=== PATIENT | female | born 1940 | race Hispanic/Latino ===

== ENCOUNTER 2016-09-01 15:34 | Inpatient (IN) | payer MEDICAID ==
[~2016-09-01] VITALS: Ht 152.4 cm; Wt 69.8 kg
[~2016-09-01 15:34] MED LIST: ASPI-973 PO; HYDR-3825 PO; INSU100V4 SUBQ; LISI-571 PO; METF-496 PO; POLY17PO6 PO; SENN-133 PO
[2016-09-01 15:37] VITALS: BP 160/67; RESP 22; O2SAT 91
--- NOTE | 2016-09-01 16:09 | ED.REPORT ---
HPI-General Illness Date of Service Sep 01, 2016 ED Provider: Khris Ardon MD History of Present Illness: OCC This is a 75 year old female with a history of DM, hyperlipidemia, HTN presenting to the emergency department accompanied by family members complaining of headache that began yesterday. Pt reports diffuse headache and generalized myalgias, associated with neck pain. Son reports confusion, weakness (pt unable to walk today), shaking chills, and cough that all began yesterday evening. Reports decreased PO intake today. [facility] [place] [facility] ago. Nursing Notes Stated Complaint: HIGH BP Chief Complaint: General Complaint Nursing Notes Reviewed: Yes (HeyStaks not reconciled) Allergies: Coded Allergies: lisinopril (Verified Adverse Reaction, Intermediate, COUGH, 09/01/16) Scheduled Aspirin (Aspirin) 81 Mg Tablet 81 MG PO DAILY Insulin Detemir (Levemir U100 Insulin Vial) 100 Unit/1 Ml Vial 11 UNIT SUBQ HS Lisinopril (Lisinopril) 5 Mg Tablet 5 MG PO DAILY Metformin ER (Metformin ER) 1,000 Mg Tablet 1,000 MG PO BID Scheduled PRN Hydrocodone-Acetaminophen 7.5-325 mg (Hydrocodone-Acetaminophen 7.5-325 mg) 1 Each Tablet 1 TABLET PO HS PRN PRN For Pain Polyethylene Glycol 3350 (Miralax) 17 Gm Powd.pack 17 GM PO DAILY PRN PRN For Constipation Sennosides (Senna) 8.6 Mg Tablet 8.6 MG PO BID PRN PRN For Constipation General Time Seen by MD: 15:45 Chief Complaint Other Hx Obtained From: Patient Arrived By: Walk-in Sudden in Onset?: Yes Onset Occurred: Just prior to arrival Symptom Duration: Since onset Severity: Current: Mild Pertinent Negative: Pt denies other symptoms Recent Healthcare: No recent doctor visit, No recent hospitalization Similar Sx Previous: No Past Medical History Past Medical History Notes: Admitted 08/2015 for r/o sepsis, discharge dx gastroenteritis Past Medical History 1. Significant for type 2 diabetes mellitus, poorly controlled, positive history of diabetic gastroparesis, neuropathy 2. Depression and anxiety. 3. History of atypical chest pain with a negative stress echo in 2002. 4. Chronic sciatica (history of receiving 60 Vicodin a month) 5. 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 Reports: Diabetes mellitus, Hyperlipidemia, Hypertension Past Surgical History Reports: Tubal ligation Smoking History Never Smoker Social History Pt is Kittitian-speaking Drug Use: Denies drug use Ambulatory Status Independent Review of Systems Unable to Obtain ROS Patient condition Full Review of Systems Constitutional: Reports: Chills Musculoskeletal: Reports: Neck pain Neurologic: Reports: Headache Physical Exam Vital Signs Vital Signs Date Time Temp Pulse Resp B/P Pulse Ox O2 Delivery O2 Flow Rate FiO2 09/01/16 18:00 37.2 86 25 128/48 98 Nasal Cannula 2 09/01/16 15:37 39.9 22 160/67 91 Room Air Initial VS: Reviewed Head / Eyes: Atraumatic, Normocephalic, PERRL ENT: Mucous membranes moist, Conjunctiva normal, No scleral icterus Neck: Supple, Non-tender, Full range of motion Cardiovascular: Regular rate & rhythm, Heart sounds normal, Intact distal pulses Extremities: Vascular intact, Neuro intact, No swelling, No tenderness Skin: Warm, Dry, No cyanosis Alertness: Positive: Responds to verb stimuli Appears ill and very fatigued. Respiratory / Chest: No wheezing Tachypneic, lung sounds are not heard due to breathing rate. No cough. Abdomen: BS normoactive Scar near umbilicus Neurologic: Speech NL, No motor deficits, No sensory deficits, CN II - XII intact Responds to questions in Kitt[place], moving all extremities without focal deficits. Interpretation & Diagnostics Interpretation & Diagnostics: BLOOD GAS REPORT pH 7.475 pCO2 29 pO2 63.5 cHCO3 21.4 cBase -1.0 Lab Results Interpretation Result Diagram: 09/01/16 1600 09/01/16 1600 Test 09/01/16 16:00 09/01/16 17:30 White Blood Count 17.9th/mm3 (3.8-10.1) Red Blood Count 3.42mil/mm3 (3.90-5.20) Hemoglobin 11.9g/dL (12.0-15.6) Hematocrit 34.0% (35.0-46.0) Mean Corpuscular Volume 99.4fL (81-100) Mean Corpuscular Hemoglobin 34.8pg (27.0-35.0) Mean Corpuscular Hemoglobin Concent 35.0% (32.0-37.0) Red Cell Distribution Width 13.1% (12.3-15.4) Platelet Count 299bil/L (150-400) Neutrophils (%) (Auto) 85.8% (40-74) Lymphocytes (%) (Auto) 9.9% (14-46) Monocytes (%) (Auto) 3.3% (4-12) Eosinophils (%) (Auto) 0.3% (0-5) Basophils (%) (Auto) 0.1% (0-3) Urine Color Straw (YELLOW) Urine Appearance Clear (CLEAR,HAZY) Urine pH 6.5 (5.0-8.0) Urine Specific [place] 1.010 (1.003-1.035) Urine Protein Tracemg/dL (NEG,TRACE) Urine Glucose (UA) 100mg/dL (NEGATIVE) Urine Ketones Tracemg/dL (NEGATIVE) Urine Occult Blood Small (NEGATIVE) Urine Nitrite Positive (NEGATIVE) Urine Bilirubin Negative (NEGATIVE) Urine Urobilinogen Normalmg/dL (NORMAL) Urine Leukocyte Esterase Negative (NEGATIVE) Urine RBC 0-2/hpf (0-2) Urine WBC 0-5/hpf (0-5) Urine Epithelial Cells None/hpf (NONE-MOD) Urine Crystals None seen (NONE SEEN) Urine Bacteria Many/hpf (NONE-FEW) Urine Hyaline Casts None/lpf (NONE) Urine Granular Casts None seen (NONE SEEN) Urine Waxy Casts None seen (NONE SEEN) Urine Red Blood Cell Casts None seen (NONE SEEN) Urine White Blood Cell Casts None seen (NONE SEEN) Urine Mucus None seen (None Seen) Urine Trichomonas None seen (NONE SEEN) Urine Yeast None (NONE SEEN) Urinalysis Comment None Urine Culture Reflexed Indicated Sodium Level 131mEq/L (134-144) Potassium Level 4.3mEq/L (3.5-5.2) Chloride Level 93mEq/L (97-108) Carbon Dioxide Level 20mmol/L (18-29) Blood Urea Nitrogen 23mg/dL (8-27) Creatinine 0.74mg/dL (0.57-1.00) Estimat Glomerular Filtration Rate 110mL/min (>59) Glucose Level 526mg/dL (60-99) Lactic Acid Level 2.8mmol/L (0.4-2.0) Calcium Level 9.0mg/dL (8.5-10.1) Total Bilirubin 0.7mg/dL (0.0-1.2) Aspartate Amino Transf (AST/SGOT) 46U/L (0-50) Alanine Aminotransferase (ALT/SGPT) 45U/L (0-32) Alkaline Phosphatase 141U/L (25-165) Total Protein 7.2g/dL (6.4-8.4) Albumin 3.7g/dL (3.4-5.0) CSF Appearance Clear (CLEAR) CSF Color Colorless (COLORLESS) CSF WBC 1/mm3 (0-5) CSF RBC 0/mm3 CSF Mononuclear WBCs % CSF Polynuclear WBCs % CSF Other Cells CSF Glucose 214mg/dL (45-90) CSF Total Protein 35mg/dL (15-45) Lab Results Interpretation: CBC positive leukocytosis CMP moderate hyperglycemia, no anion gap or markers of DKA Lactic acid elevated UA negative Influenza negative Blood cultures 2 pending X-Ray Chest Interpretation Chest Xray Interpretation: IMPRESSION: 1. No acute cardiopulmonary disease. Dictated by: Walter Rodriguez M.D. on 09/01/2016 at 16:58 Approved by: Walter Rodriguez M.D. on 09/01/2016 at 16:59 Procedures Lumbar Puncture Text / Dict Note: Clear CSF Time: 19:05 Procedure Performed by: ED physician Consent / Setup / Site Prep: Informed consent provided, Consent from patient , Hand hygiene observed, Stand sterile technique, Sterile drapes applied Skin Preparation Agent: Betadine Local Anesthesia: Bupivacaine 0.25% LP Needle Gauge: 22 gauge, 2.5 inch Post-Procedure / Complications: Antibiotic oint applied, Dressing applied, No complications, Tolerated procedure well, Patient stable Re-Eval/Medical Decision Med Decision/Clinical Course This is a 75-year-old female brought to the emergency by family with a complaint of fevers chills and weakness. Most of the history is from the family , reportedly came to visit her she developed rigors yesterday. Today she is complaining of complete body aches, including headache and neck stiffness, one family member said there was a cough-the second family members as they know her well and the cough is chronic and unchanged, but the patient was so weak that the family had to pick her up because she could not understand her walk to bring her to the emergency department. She denied abdominal pain, vomiting, diarrhea, or dysuria. She has no known ill contacts, but flew back from [place] in recent weeks. She has no recent infectious history, no recent antibiotic exposure, no additional complaints. The patient appears quite ill, is febrile, and profoundly weak. She does not have overt meningismus on clinical exam however. Her lungs are clear, there is no cough. Abdomen soft nontender. There are no rashes. There is no focal deficits, but the patient again is profoundly globally weak. Workup was pursued. Chest x-ray is negative, flu swab was negative. Blood work supple for severe leukocytosis and moderate lactic acidemia consistent with sepsis. He is also significantly hyperglycemic, but is not in DKA. Given the absence of a clear source, and the report of a headache and neck stiffness and small mental status at times, a lumbar puncture was performed. The hand A LP was performed at the bedside in the sterile conditions and clear CSF was obtained. Initial CSF studies revealed no CSF pleocytosis, so that no findings to support that intravenous. Patient initially received ceftriaxone to see LP was being done. Given her workup is negative for clear source, she is being started on the hospital sepsis without a source pathway. She received fluids, Tylenol, and empiric antibiotics. She is being admitted for continued management. Also received a dose of insulin with initial improvement in the blood glucose along with the hydration. Source of Hx: Old records Time of Eval: 19:05 Re-Evaluation/Progress Note: Lumbar puncture Consultation : Referral / Consult Name: Yelena Sales DO Consulted With: Hospitalist Call Returned at: 19:49 Medication Manager: Accepts admit Differential Diagnosis: Positive: Diabetes mellitus, Negative: Abdominal pain, Acute coronary syndrome, Allergies, Fracture, Neutropenia, Pneumonia, Urinary tract infection Counseled Regarding: Diagnosis, Lab results, Need for follow-up Discharge & Departure Primary Impression: Sepsis Sepsis type: sepsis due to unspecified organism Qualified Code: A41.9 - Sepsis, unspecified organism Additional Impressions: Hyperglycemia Elevated lactic acid level Disposition: ADMITTED TO HOSPITAL Discharge Condition All VS Reviewed: Yes Condition: Stable Referrals: Ally Subramanian MD (PCP) Scribe Attestation Portions of this note were transcribed by Jose Nevarez. I, Dr. Ardon personally performed the history, physical exam and medical decision-making; I reviewed and confirmed the accuracy of the information in the transcribed note. Signed by: jatin Hinojosa. 09/01/2016, 23:30. Khris Ardon MD Sep 01, 2016 16:09 JOSE NEVAREZ Sep 01, 2016 16:11
[2016-09-01 16:27] LABS: BASOPHILS % (AUTO) 0.1 % (0-3); EOSINOPHILS % (AUTO) 0.3 % (0-5); MONOCYTES % (AUTO) 3.3 % (4-12); Mean Corpuscular Hemoglobin 34.8 pg (27.0-35.0); Mean Corpuscular Volume 99.4 fL (81-100); NEUTROPHILS % (AUTO) 85.8 % (40-74); Platelet Count 299 bil/L (150-400)
[2016-09-01] MEDS ORDERED: 0.9% Sodium Chloride 1,000 ML IV ONE ×2 (16:30→16:50)
[2016-09-01 16:42] LABS: APPEARANCE,URINE CLEAR (CLEAR,HAZY); COLOR,URINE STRAW (YELLOW); PH,URINE 6.5 (5.0-8.0)
[2016-09-01 16:43] LABS: OCCULT BLOOD,URINE SMALL (NEGATIVE); UROBILINOGEN,URINE NORMAL (NORMAL)
--- NOTE | 2016-09-01 16:44 | ABG ---
DateTimeAnalyzed 16:38:00 -_ pH ____7.475 - pCO2 ___29.4__ -mmHg pO2 ___63.5__ -mmHg HCO3- ___21.4__ -mmol/L ABE ___-1.0__ -mmol/L tHb ___11.6__ -g/dL O2Hb ___91.2__ -% COHb ____1.5__ -% MetHb ____1.3__ -% sO2 ___93.8__ -% FIO2 ___21.0__ -% Drawn By jmw - Date/Time Notified____ 16:43:00 -_ Notified By JMW - Notified Whom DR DIMPLE - B 749 -mmHg tO2 ___14.9__ -Vol% Elmer test N/A -
--- NOTE | 2016-09-01 17:01 | DRSVH ---
PROCEDURE: X-RAY CHEST ONE VIEW, PORTABLE ([id number]) INDICATIONS: fever TECHNIQUE: One view of the chest was acquired. COMPARISON: [facility], CR, XR CHEST 2VW, 11/19/2015, 9:26. FINDINGS: Surgical changes and devices: None. Lungs and pleura: No pleural effusions or pneumothorax. Lungs are clear. Mediastinum: Mediastinal contours appear normal. Heart size is normal. Bones and chest wall: No suspicious bony lesions. Overlying soft tissues appear unremarkable. IMPRESSION: 1. No acute cardiopulmonary disease. Dictated by: Walter Rodriguez M.D. on 09/01/2016 at 16:58 Approved by: Walter Rodriguez M.D. on 09/01/2016 at 16:59
[2016-09-01 17:07] LABS: TROPONIN T < 0.010 ug/L (0.0-0.011)
[2016-09-01 17:15] LABS: Magnesium 1.5 mg/dL (1.6-2.6)
[2016-09-01] MEDS ORDERED: Magnesium Sulf 2 Gm/50mL Water 2 GM in IV Premix 1 EACH IV ONE (17:35)
[2016-09-01] MEDS ORDERED: (U-500) Insulin Regluar, Human 500 Unit/mL Syringe SUBQ ONE (17:35)
[2016-09-01 18:00] VITALS: BP 128/48; PULSE 86; RESP 25; O2SAT 98
[2016-09-01] MEDS ORDERED: Insulin Human REGular-Omnicell 100 Unit/mL SUBQ ONE (18:15)
[2016-09-01] MEDS ORDERED: cefTRIAXone Inj 2,000 MG in Dextrose 5% Minibag Plus 50 ML IV ONE (18:20)
[2016-09-01] MEDS ORDERED: Vancomycin Dose per Pharmacist XX ONE ×3 (18:20→20:55)
[2016-09-01] MEDS ORDERED: Vancomycin Inj 1,750 MG in 0.9% Sodium Chloride 500 ML IV ONE (18:25)
[2016-09-01] MEDS ORDERED: Bupivacaine-MPF 0.5% 30 mL Inj ONE (19:02)
[2016-09-01] MEDS ORDERED: Doxycycline Inj 100 MG in Dextrose 5% 100 ML IV ONE (19:25)
[2016-09-01] MEDS ORDERED: Tobramycin per Pharmacist XX ONE (19:25)
[2016-09-01] MEDS ORDERED: Piperacillin-Tazo 3.375 Gm Inj 3.375 GM in Dextrose 5% Minibag Plus 50 ML IV ONE (19:25)
[2016-09-01 19:54] LABS: APPEARANCE,CSF CLEAR (CLEAR); COLOR,CSF COLORLESS (COLORLESS); WHITE BLOOD CELL,CSF 0 /mm3 (0-5)
[2016-09-01 19:55] LABS: APPEARANCE,CSF CLEAR (CLEAR); COLOR,CSF COLORLESS (COLORLESS)
[2016-09-01 19:56] LABS: WHITE BLOOD CELL,CSF 1 /mm3 (0-5)
[2016-09-01] MEDS ORDERED: Polyethylene Glycol (PEG) 17 Gm Powder PO PRN (20:00)
[2016-09-01] MEDS ORDERED: Alum-Mag Hydrox-Simeth 30 mL Suspension PO PRN ×2 (20:00→20:55)
[2016-09-01] MEDS ORDERED: Ondansetron 2 mg/mL 2 mL Inj IVPUSH PRN ×2 (20:00→20:55)
[2016-09-01] MEDS ORDERED: Gentamicin Per Pharmacist XX ONE (20:10)
[2016-09-01] MEDS ORDERED: GENTAMICIN IV ONE (20:30)
[2016-09-01] MEDS ORDERED: DEXTROSE 5% IV ONE (20:30)
[2016-09-01 20:35] VITALS: PULSE 75
[2016-09-01 20:41] VITALS: BP 105/57; PULSE 75; RESP 20; O2SAT 94
[2016-09-01] MEDS ORDERED: 0.9% Sodium Chloride 1,000 ML IV SCH (20:53)
[2016-09-01] MEDS ORDERED: Glucose 40% Oral Gel 15 Gm Tube PO PRN (21:30)
[2016-09-01] MEDS: 0.9% Sodium Chloride 1,000 ML IV SCH (21:32)
[2016-09-01] MEDS: Insulin LISPRO 300 Unit/3 mL Inj SUBQ SCH (21:38)
[2016-09-01 21:59] LABS: Magnesium 2.2 mg/dL (1.6-2.6); TROPONIN T 0.01 ug/L (0.0-0.011)
--- NOTE | 2016-09-01 22:16 | NUR ---
admit note: pt. admitted for fever, malaise, weakness, cough, report obtained from grand-daughter. pt's blood glucose was over 300, vitals stable.
[2016-09-01] MEDS: Sodium Chloride LOK Flush 10 mL Syringe IVFLUSH SCH (23:18)
[2016-09-02] VITALS (12 sets, daily range): BP systolic 100–130; BP diastolic 45–71; PULSE 67–106; RESP 16–20; O2SAT 92–99
--- NOTE | 2016-09-02 00:04 | PCM.HPMED ---
Subjective Date of Service Sep 01, 2016 Primary Provider: Admitting Physician: Yelena Sales DO Primary Care Physician: Ally Subramanian MD Attending Physician: Yelena Sales DO Admit Status: From the Emergency Department Chief Complaint: Weakness History of Present Illness: 75-year-old female presented to the ER with complaint of shaking chills , fever, weakness. History is obtained from the patient's granddaughter, as patient is very weak and tired. Patient's granddaughter reports that the patient was in her normal state of health 2 days ago. Granddaughter reports that yesterday the patient was complaining of weakness and feeling ill, and today was experiencing shaking chills fever some confusion and worsening weakness. Granddaughter reports that the patient's weakness was so severe that she was unable to walk and her sons had to carry her to the ER. Family reports that at baseline the patient uses a cane to walk and is independent of all her activities. Per family she lives with her 3 sons. Patient and family report that she has a history of constipation, and reports that she has had very few bowel movements over the past 2-3 weeks. Patient reports headaches, fatigue, weakness, fever, chills, nausea,vomiting ,constipation and myalgias. Patient denies chest pain, shortness of breath. She denies dysuria, hematuria or increased frequency of urination. Patient did report some CVA tenderness. While in the ER patient had a temperature of 39.9 pulse 86, respiratory rate 22 , blood pressure 160/67, pulse ox 91 on room air. Labs revealed white count 17.9 hemoglobin 11.9 hematocrit 34.0, neutrophils 85.8%. Glucose was 526 on admission, lactic acid was 2.8. Patient underwent lumbar puncture while in the ER, which was nontraumatic per the ER physician. Review of Systems: A comprehensive review of systems was conducted with the patient and found to be negative except as above in the History of Present Illness. Allergies Coded Allergies: lisinopril (Verified Adverse Reaction, Intermediate, COUGH, 09/01/16) Home Medications Per family: Metformin Glipizide Insulin Hypertensive medication, name unknown Ibuprofen Vicodin PMH Diabetes mellitus type II, insulin-dependent History of broken ribs Cataracts Hyperlipidemia Chronic pain on Vicodin Chronic constipation Hypertension Surgical History Cataract surgery Social History Hx Alcohol Use: No Hx Substance Use: No Hx Tobacco Use: No Smoking Status: Never Smoker Living Arrangement: with Family (with her 3 sons) Exam Vital Signs Vital Sign - Last Date Time Temp Pulse Resp B/P Pulse Ox O2 Delivery O2 Flow Rate FiO2 09/01/16 20:41 37.2 75 20 105/57 94 Nasal Cannula 2.00 Exam General: Frail elderly female, ill appearing, very fatigued, unable to keep her eyes open.well-nourished, appropriately interactive HEENT: Nasal canula in place. Normocephalic, atraumatic. External ears without defect. Moist conjunctivae. Oropharynx with moist mucosa no erythema or cobblestoning noted Neck: Supple with full range of motion.No lymphadenopathy Cardiovascular: Regular rate and rhythm with no murmurs, rubs, or gallops appreciated Pulmonary: Requiring supplemental oxygen. Clear to auscultation bilaterally with no crackles, wheezes, or rhonchi. Normal respiratory effort with no use of accessory muscles. Abdomen: Bowel tones present. Soft, nontender, nondistended. Extremities: No clubbing, cyanosis, edema, appreciated. Skin: Normal temperature, turgor, and texture; no rash, ulcers, or subcutaneous nodules appreciated. Psychiatric: Very fatigued. Normal mood and affect. Alert and oriented to person , place, and time.Indonesian speaking only. Lab and Diagnostics Result Diagram: 09/01/16 1600 09/01/16 1600 Microbiology 09/01/16 Blood Culture, Received Pending 09/01/16 Gram Stain, Received Pending 09/01/16 Culture & Sensitivity, Received Pending 09/01/16 Influenza Screen - Final, Complete 09/01/16 Urine Culture, Received Pending X-Rays, CTs and MRIs PROCEDURE: X-RAY CHEST ONE VIEW, PORTABLE ([id number]) INDICATIONS: fever TECHNIQUE: One view of the chest was acquired. COMPARISON: [facility], CR, XR CHEST 2VW, 11/19/2015, 9:26. FINDINGS: Surgical changes and devices: None. Lungs and pleura: No pleural effusions or pneumothorax. Lungs are clear. Mediastinum: Mediastinal contours appear normal. Heart size is normal. Bones and chest wall: No suspicious bony lesions. Overlying soft tissues appear unremarkable. IMPRESSION: 1. No acute cardiopulmonary disease. Dictated by: Walter Rodriguez M.D. on 09/01/2016 at 16:58 Approved by: Walter Rodriguez M.D. on 09/01/2016 at 16:59 Assessment & Plan Acute sepsis with unknown source, present on admission, ongoing -Pt met SIRS criteria with T 39.9, WBC 17.9, RR 22 -LP performed in ER, did not demonstrate meningitis findings -CXR in ER reported as normal -UA with nitrites, and many bacteria. Urine culture pending -Blood cultures x2 drawn in ER -In ER, pt started on Doxycycline, Ceftriaxone, Zosyn and Vancomycin. -Per sepsis of unknown source protocol, we will be treating patient with Vancomycin and Zosyn -If above testing does not yield a source, recommend consulting ID- Dr Godfrey -Pt has elevated Lactic 2.8, will be checking lactic q 2 hrs until normalized -Procalcitonin elevated at 17.16 -IVF NS at 125mls/hr -Viral PCR ordered -Patient reported some CVA tenderness, CT abdomen and pelvis with contrast ordered Acute generalized weakness, present on admission, ongoing -Likely secondary to sepsis and causative agent -Will continue with plan above -PT evaluation ordered -Pt uses cane at baseline, and lives with family Diabetes mellitus type 2, insulin dependent, present on admission, ongoing -Patient had elevated glucose of 526 on admission, and received insulin in the ER. -Diabetic diet ordered, hgbA1c pending -Low dose correctional scale -Hold home medications at this time--Once medication reconciliation has been completed. Chronic constipation, present on admission, ongoing -Pt family reports history of constipation, and pt currently reports constipation -Pt has prn Miralax, senna etc. -Will consider enema if needed, but holding off at this time Acute hyponatremia, present on admission, ongoing -IVF NS at 125mls/hr -Continue to monitor with AM labs Acute hypomagnesemia , present on admission, ongoing -Pt received 2gm of Magnesium in the ER -Will continue to monitor with AM labs, replenish as appropriate Chronic pain treated with narcotic pain medication, present on admission, ongoing -Family reports she takes Vicodin, but unsure of dosing -Once medication reconciliation has been completed, we can restart these medications Chronic hyperlipidemia -No home medications reported Hypertension -Pt is currently mildly hypotensive -Unclear what home medications pt is on, but we will hold these medication when med rec is completed. PCP: Dr Subramanian( [facility]) Code: Full Patient is admitted under inpatient status with expected length of stay greater than 2 midnights due to severity of presenting symptoms, risk of adverse event, and complexity of treatment plan. VTE Mechanical Devices: Intermittant Pneumatic CD Resuscitation Status: CPR: Attempt Resuscitation Attending Statement The patient was seen and examined together with house staff on 09/01/2016 and I agree with the history, exam and plan as outlined in the note above. copies to: Ally Subramanian MD, Tara L DO Sep 01, 2016 21:46 Yelena Sales DO Sep 02, 2016 01:26
[2016-09-02 02:09] LABS: APPEARANCE,URINE HAZY (CLEAR,HAZY); COLOR,URINE YELLOW (YELLOW)
[2016-09-02 02:10] LABS: OCCULT BLOOD,URINE SMALL (NEGATIVE); UROBILINOGEN,URINE NORMAL (NORMAL)
[2016-09-02] MEDS ORDERED: Vancomycin Dose per Pharmacist XX SCH (02:35)
[2016-09-02 02:53] LABS: BASOPHILS % (AUTO) 0.2 % (0-3); EOSINOPHILS % (AUTO) 0.2 % (0-5); Mean Corpuscular Hemoglobin 34.4 pg (27.0-35.0); Mean Corpuscular Volume 99.3 fL (81-100); NEUTROPHILS % (AUTO) 85.9 % (40-74); Platelet Count 254 bil/L (150-400)
[2016-09-02 03:25] LABS: Magnesium 1.7 mg/dL (1.6-2.6)
--- NOTE | 2016-09-02 03:46 | PCM.CONPHA ---
Subjective Date of Service: Sep 01, 2016 Requesting Provider: Shasha Borrero DO sepsis History of Present Illness General weakness, shaking, and chills Reason for Pharmacy Consult: Vancomycin Dosing Objective Vital Signs Date Time Temp Pulse Resp B/P Pulse Ox O2 Delivery O2 Flow Rate FiO2 09/02/16 02:03 94 93 Nasal Cannula 3.00 09/02/16 01:57 37.4 95 20 130/65 92 Nasal Cannula 2.00 09/02/16 01:02 37.9 106 95 Nasal Cannula 2.00 09/01/16 22:18 Supplement Oxygen 09/01/16 20:41 37.2 75 20 105/57 94 Nasal Cannula 2.00 09/01/16 20:35 75 09/01/16 18:00 37.2 86 25 128/48 98 Nasal Cannula 2 09/01/16 15:37 39.9 22 160/67 91 Room Air Intake and Output 08/30/16 08/31/16 09/01/16 23:59 23:59 23:59 Intake Total 1000 ml Balance 1000 ml Weight (Kilograms): 67.200 Height (Feet): 5 Height (Inches): 0.00 Test 09/01/16 17:30 09/01/16 21:15 09/02/16 02:00 09/02/16 02:35 CSF Appearance Clear (CLEAR) CSF Color Colorless (COLORLESS) CSF WBC 1/mm3 (0-5) CSF RBC 0/mm3 CSF Mononuclear WBCs % CSF Polynuclear WBCs % CSF Other Cells CSF Glucose 214mg/dL (45-90) CSF Total Protein 35mg/dL (15-45) Phosphorus Level 3.0mg/dL (2.5-4.9) Troponin T 0.010ug/L (0.0-0.011) Urine Color Yellow (YELLOW) Urine Appearance Hazy (CLEAR,HAZY) Urine pH 6.0 (5.0-8.0) Urine Specific [place] 1.025 (1.003-1.035) Urine Protein Tracemg/dL (NEG,TRACE) Urine Glucose (UA) 500mg/dL (NEGATIVE) Urine Ketones Negativemg/dL (NEGATIVE) Urine Occult Blood Small (NEGATIVE) Urine Nitrite Positive (NEGATIVE) Urine Bilirubin Negative (NEGATIVE) Urine Urobilinogen Normalmg/dL (NORMAL) Urine Leukocyte Esterase Trace (NEGATIVE) Urine RBC 3-10/hpf (0-2) Urine WBC 11-50/hpf (0-5) Urine Epithelial Cells Few/hpf (NONE-MOD) Urine Crystals None seen (NONE SEEN) Urine Bacteria Moderate/hpf (NONE-FEW) Urine Hyaline Casts None/lpf (NONE) Urine Granular Casts None seen (NONE SEEN) Urine Waxy Casts None seen (NONE SEEN) Urine Red Blood Cell Casts None seen (NONE SEEN) Urine White Blood Cell Casts None seen (NONE SEEN) Urine Mucus None seen (None Seen) Urine Trichomonas None seen (NONE SEEN) Urine Yeast None (NONE SEEN) Urinalysis Comment None Urine Culture Reflexed Indicated Assessment/Plan Assessment/Plan A/ - 75 y/o female patient carried into ED by her son, met SIRS criteria on admission - WBC: 17.9, afebrile, lactic acid: 2.8, negative cerebral spinal fluid ( ruled out meningitis), urine and blood cultures: pending - In ED, doxycycline iv, gentamicin iv, ceftriaxone iv, Vancomycin 1.75g iv given once, zosyn also started and continued - Wt: 67.2 kg, ht: 152 cm, SCr: 0.74 mg/dL, estimated clearance ~ 53 ml/min , t1/2 ~ 14 hrs, Vd ~ 47 L - Target trough: 15-20 P/ - Give Vancomycin 1.25 G iv q24h. Trough level ordered before 3rd dose @ 1800 on 09/03 with estimated trough should be around 17 Pharmacy will continue to follow and make necessary adjustment Thank you for consulting clinical pharmacy for the care of this patient Dash Lindsay, Abdiaziz, [facility] Juliet Lindsay Sep 02, 2016 03:46
[2016-09-02] MEDS: 0.9% Sodium Chloride 1,000 ML IV SCH ×2 (05:09→14:53)
[2016-09-02] MEDS: Piperacillin-Tazo 3.375 Gm Inj 3.375 GM in Dextrose 5% Minibag Plus 50 ML IV SCH ×2 (06:11→16:51)
--- NOTE | 2016-09-02 06:26 | NUR ---
prog note: pt. had fever/chills last noc, came down with tylenol. pt. had 2 positive blood cultures, ct of abdomen/pelvis showed pyelonephritis, night hospitalist/resident notified.
[2016-09-02] MEDS ORDERED: GLIP10TA10 PO (07:54)
[2016-09-02] MEDS: Sodium Chloride LOK Flush 10 mL Syringe IVFLUSH SCH ×2 (07:56→15:04)
[2016-09-02] MEDS: Insulin LISPRO 300 Unit/3 mL Inj SUBQ SCH ×4 (07:56→21:14)
[2016-09-02] MEDS: Heparin 5,000 Unit/mL Inj SUBQ SCH ×2 (07:56→21:14)
--- NOTE | 2016-09-02 08:37 | DRSVH ---
PROCEDURE: CT ABDOMEN AND PELVIS WITH CONTRAST ([id number]) INDICATIONS: cva tenderness, elev wbc TECHNIQUE: After the administration of oral and intravenous contrast, 5 mm thick sections acquired from the diap hragms to the symphysis. 5 mm thick coronal and sagittal reformats were performed. For radiation do se reduction, the following was used: automated exposure control, adjustment of mA and/or kV accordi ng to patient size. COMPARISON: CT abdomen and pelvis 09/03/2015, 10/12/2014, 05/02/2013, 08/14/2011 FINDINGS: Preliminary report by shift coordinator radiology Image quality: Excellent. ABDOMEN: Lung bases: Lung bases are clear. Heart size is normal. Solid organs: Liver and spleen are normal in size, liver showing homogeneous decreased attenuation. Gallbladder appears normal. Biliary system is non-dilated. Pancreas enhances normally. No adrenal nodules. Kidneys are normal in size and enhancement, without hydronephrosis. There is considerable p erinephric fat stranding on the right which is nonspecific but could reflect infectious process such as pyelonephritis. Peritoneum and bowel: Stomach, small bowel, and colon loops are normal in caliber and wall thickness . The appendix is not seen. No pericecal inflammation. No free fluid or air. Nodes and vessels: No retroperitoneal or mesenteric adenopathy. Aorta and inferior vena cava are no rmal in caliber. Miscellaneous: No ventral hernias. PELVIS: Genitourinary: Bladder wall thickness is normal. Atrophic uterus and adnexa. Miscellaneous: Fat filled left inguinal hernias, no adenopathy. Bones: No suspicious bony lesions. No vertebral body compression fractures. Degenerative disc disea se and grade 1 anterolisthesis at L4-5 and L5-S1. IMPRESSION: 1. Right perinephric fat stranding could reflect acute pyelonephritis as it was not apparent on most recent prior exam. No nephrolithiasis or hydronephrosis seen. 2. Appendix is nonvisualized. No bowel obstruction or inflammation evident. 3. Hepatic steatosis. Findings are concordant with the preliminary report Dictated by: Ferny Romero M.D. on 09/02/2016 at 8:29 Approved by: Ferny Romero M.D. on 09/02/2016 at 8:36
[2016-09-02] MEDS ORDERED: CYCL10TA9 PO (10:10)
[2016-09-02] MEDS ORDERED: DICL50TA5 PO (10:10)
[2016-09-02] MEDS ORDERED: Magnesium Sulf 2 Gm/50mL Water 2 GM in IV Premix 1 EACH IV ONE (10:35)
[2016-09-02] MEDS ORDERED: Insulin GLARgine 100 Unit/mL Syringe SUBQ ONE (10:35)
[2016-09-02] MEDS ORDERED: Glucose 40% Oral Gel 15 Gm Tube PO PRN (10:35)
[2016-09-02] MEDS ORDERED: HYDR12.5 PO (10:56)
[2016-09-02] MEDS ORDERED: LOSA25TA21 PO (10:56)
[2016-09-02] MEDS: HYDROcodone-APAP 7.5-325 mg Tablet PO PRN (14:53)
[2016-09-02] MEDS: Calcium Carbonate (Oyster Shell) 500 mg Tablet PO SCH ×2 (14:53→21:13)
--- NOTE | 2016-09-02 15:56 | NUR ---
Shift Note Pt VSS, afebrile this shift. 1 PA to BSC. Family at bedside and help with basic communication/translation, rental counter clerk services for pt education and assessments. Lactate 1.5. Tele: SR 70s, per lead based paint technician. 1 tab [place] for c/o headache, pt reports some relief.
[2016-09-02] MEDS ORDERED: Vancomycin Inj 1,250 MG in 0.9% Sodium Chloride 250 ML IV SCH (18:30)
--- NOTE | 2016-09-02 19:36 | PCM.PNMED ---
Subjective Date of Service Sep 02, 2016 Subjective 75-year-old female with diabetes type 2, hypertension, presented to the ER with complaint of shaking chills, fever, weakness. Patient's granddaughter is in the room translating. Also in the room is patient' s son (also Barbadian-speaking) who takes care of his mother's medicine. He is unsure how much insulin that he gives her but states that he more or less gives her the same amount daily. Mrs. Mcginnis states that she is feeling much better but still very achy today. Also weak. She reports flank tenderness as well. This is day 2. . Exam Vital Signs Vital Sign - Last Date Time Temp Pulse Resp B/P Pulse Ox O2 Delivery O2 Flow Rate FiO2 09/02/16 18:25 36.6 75 17 106/45 97 Room Air 09/02/16 13:07 3.00 Intake and Output 09/01/16 09/01/16 09/02/16 Cumulative From/Thru 15:00 23:00 07:00 09/01/16 16:48 - 09/02/16 06:38 Intake Total 1000 ml 2008 ml 3008 ml Output Total 325 ml 325 ml Balance 1000 ml 1683 ml 2683 ml Intake Oral 700 ml 700 ml IV Total 1000 ml 1308 ml 2308 ml Output Urine Total 325 ml 325 ml Exam General: alert, oriented x3, cooperative, appears uncomfortable, lying in bed Eyes: scleral anicteric Mouth: mucous membranes moist/pink Neck: supple Chest & Lungs: clear to auscultation, no adventitious breath sounds, no crackles , no wheeze Cardiovascular: no murmurs/rubs/gallops, regular rate/rhythm Pulses: Radial (present and equal), Dorsalis Pedi (present and equal) Abdomen: soft, normoactive bowel tones Musculoskeletal: unremarkable, no swollen or erythematous joints Extremities: no edema Neurological:Normal speech . IVs and Medications Medications Reviewed: Medications were reviewed in detail Lab and Diagnostics Result Diagram: 09/02/1623409/02/16234 Microbiology Microbiology 09/01/16 Gram Stain - Final, Resulted 09/01/16 Culture & Sensitivity - Preliminary, Resulted No growth to date 09/01/16 Adenovirus DNA (PCR) - Final, Complete Not Detected 09/01/16 Coronavirus 229E PCR - Final, Complete Not Detected 09/01/16 Coronavirus HKU1 PCR - Final, Complete Not Detected 09/01/16 Coronavirus NL63 PCR - Final, Complete Not Detected 09/01/16 Coronavirus OC43 PCR - Final, Complete Not Detected 09/01/16 Influenza Type A (PCR) - Final, Complete Not Detected 09/01/16 Influenza Type B (PCR) - Final, Complete Not Detected 09/01/16 Human Metapneumovirus (PCR) (RAH) - Final, Complete Not Detected 09/01/16 Rhinovirus (PCR)(RAH) - Final, Complete Not Detected 09/01/16 Parainfluenza Virus Type 1 (PCR) - Final, Complete Not Detected 09/01/16 Parainfluenza Virus Type 2 (PCR) - Final, Complete Not Detected 09/01/16 Parainfluenza Virus Type 3 (PCR) - Final, Complete Not Detected 09/01/16 Parainfluenza Virus Type 4 (NAAT) - Final, Complete Not Detected 09/01/16 Respiratory Syncytial Virus (PCR)MD - Final, Complete Not Detected 09/01/16 Chlamydia pneumoniae (PCR) - Final, Complete Not Detected 09/01/16 Mycoplasma pneumoniae DNA Detection - Final, Complete 09/02/16 Urine Culture, Received Pending 09/01/16 blood culture = gram negative rods. Repeat pending. X-Rays, CTs and MRIs PROCEDURE: X-RAY CHEST ONE VIEW, PORTABLE ([id number]) INDICATIONS: fever TECHNIQUE: One view of the chest was acquired. COMPARISON: [facility], CR, XR CHEST 2VW, 11/19/2015, 9:26. FINDINGS: Surgical changes and devices: None. Lungs and pleura: No pleural effusions or pneumothorax. Lungs are clear. Mediastinum: Mediastinal contours appear normal. Heart size is normal. Bones and chest wall: No suspicious bony lesions. Overlying soft tissues appear unremarkable. IMPRESSION: 1. No acute cardiopulmonary disease. Dictated by: Walter Rodriguez M.D. on 09/01/2016 at 16:58 Approved by: Walter Rodriguez M.D. on 09/01/2016 at 16:59 Assessment & Plan 75-year-old female with diabetes type 2, hypertension, presented to the ER with complaint of shaking chills, fever, weakness. 1. Severe sepsis with source of pyelonephritis, present on admission, Resolved -Pt met SIRS criteria with T 39.9, WBC 17.9, RR 22 -IVF NS at 125ml/hr initially, now 60ml/hr - Treat underlying condition - CBC in a.m. 2. Pyelonephritis, present on admission, resolving -CT abdomen showed a right perinephric fat stranding that could be "acute pyelonephritis as it was not apparent on most recent prior exam" consistent with her flank pain -LP performed in ER, did not demonstrate meningitis findings -CXR in ER reported as normal -Urine culture showed >100,000 CFU of gram negative rods, pending sensitivities -Blood cultures x2 drawn in ER showed gram negative rods, repeat is pending -Patient now just on Zosyn -Pt has lactic 2.8, now 1.5 -Procalcitonin elevated at 17.16. Repeat ordered -IVF NS at 125mls/hr 3. Diabetes mellitus type 2, insulin using, present on admission, ongoing -Patient had elevated glucose of 526 on admission, and received insulin in the ER. -Diabetic diet ordered, hgbA1c pending -Medium dose correctional scale, mealtime coverage, nighttime insulin -NOTE: Patient's son does not understand how to use insulin and he is the caregiver. Will get accurate medicine list from [facility] and re-evaluate. -Diabetic education ordered 4. Chronic constipation, present on admission, ongoing -Pt family reports history of constipation, and pt currently reports constipation -Pt has prn Miralax, senna etc. ordered -Will consider enema if needed, but holding off at this time 5. Acute hyponatremia, present on admission, ongoing -IVF NS at 125ml/hr initially raised sodium. Now at 60ml/hr -a.m. labs Chronic pain treated with narcotic pain medication, present on admission, ongoing -Continued reported home dose of vicodin. Patient states uses 1 pill daily about 5 days out of the week. Chronic hyperlipidemia -Need accurate medicines -Lipid panel pending Hypertension -Pt is currently mildly hypotensive -Unclear what home medications pt is on, but we will hold these medication when med rec is completed. PCP: Dr Subramanian( [facility]) Code: Full VTE Prophylaxis: Sub-Q Heparin (Unfractionated) VTE Mechanical Devices: Intermittant Pneumatic CD Resuscitation Status: CPR: Attempt Resuscitation Attending Statement The patient was seen and examined together with Dr. Sarkar on 09-02-16 and I agree with the history, exam and plan as outlined in the note above. Shanti Sarkar DO Sep 02, 2016 19:36 Mi De La Torre MD Sep 03, 2016 09:11
[2016-09-03] VITALS (7 sets, daily range): BP systolic 114–163; BP diastolic 61–74; PULSE 68–80; RESP 16–18; O2SAT 95–98
[2016-09-03] MEDS: Sodium Chloride LOK Flush 10 mL Syringe IVFLUSH SCH ×4 (00:30→23:27)
[2016-09-03] MEDS: 0.9% Sodium Chloride 1,000 ML IV SCH ×3 (02:09→21:06)
[2016-09-03] MEDS: HYDROcodone-APAP 7.5-325 mg Tablet PO PRN (02:09)
[2016-09-03] MEDS: Piperacillin-Tazo 3.375 Gm Inj 3.375 GM in Dextrose 5% Minibag Plus 50 ML IV SCH ×4 (02:22→21:50)
--- NOTE | 2016-09-03 06:11 | NUR ---
Rest/Call Light/ABX schedule Pt was able to rest through most of the shift and c/o back pain only once and was given 1 tab of hydrocodone to help relieve the pt's pain. Pt does not use the call light when getting up to use the BSC and therefore has a princess pad underneath her to help notify staff and prevent a fall. Pt was very weak prior to admit and remains weak but overall the pt's strength has improved but not back to pt's baseline. Pt's IV kept shutting off r/t a distal occlusion and has taken a long time to complete each round of antibiotics. Therefore, the IV antibiotics that the pt has running are behind schedule so be aware prior to giving the next dose.
[2016-09-03 07:19] LABS: BASOPHILS % (AUTO) 0.2 % (0-3); EOSINOPHILS % (AUTO) 1.5 % (0-5); MONOCYTES % (AUTO) 8.9 % (4-12); Mean Corpuscular Hemoglobin 34.5 pg (27.0-35.0); NEUTROPHILS % (AUTO) 67.7 % (40-74); Platelet Count 252 bil/L (150-400)
[2016-09-03] MEDS: Calcium Carbonate (Oyster Shell) 500 mg Tablet PO SCH ×3 (09:10→21:51)
[2016-09-03] MEDS: Heparin 5,000 Unit/mL Inj SUBQ SCH ×2 (09:10→22:05)
[2016-09-03] MEDS: Insulin LISPRO 300 Unit/3 mL Inj SUBQ SCH ×5 (09:11→22:00)
[2016-09-03] MEDS ORDERED: Vancomycin Serum Trough XX ONE (18:00)
--- NOTE | 2016-09-03 18:22 | NUR ---
Blood sugars Blood sugars reaching >300. Provider notified. New order to test between lunch and dinner and cover with sliding scale and then test again at dinner and admin sliding scale with new nutritional coverage and then increase Lantus dose at bedtime. Plan discussed using family to interpret, declined programmer services, Pt and family comfortable with plan. Overall goal is to develop a more simple administration plan at home.
--- NOTE | 2016-09-03 18:46 | PCM.PNMED ---
Subjective Date of Service Sep 03, 2016 Subjective 75-year-old female with diabetes type 2, hypertension, presented to the ER with complaint of shaking chills, fever, weakness. This is day 3. Overnight there were no incidents. Patient says that her weakness is getting better. She still complains of constipation and she and the nurse are working on it. Some lower abdominal pain but otherwise no pain when she was seen. . Exam Vital Signs Vital Sign - Last Date Time Temp Pulse Resp B/P Pulse Ox O2 Delivery O2 Flow Rate FiO2 09/03/16 04:26 36.9 74 16 128/61 95 Room Air 09/02/16 13:07 3.00 Intake and Output 09/02/16 09/02/16 09/03/16 Cumulative From/Thru 15:00 23:00 07:00 09/01/16 16:48 - 09/03/16 06:07 Intake Total 2021 ml 1055 ml 6084 ml Output Total 1000 ml 1325 ml Balance 2021 ml 55 ml 4759 ml Intake Oral 736 ml 200 ml 1636 ml IV Total 1285 ml 855 ml 4448 ml Output Urine Total 1000 ml 1325 ml # Voids 3 3 Exam General: alert, oriented x3, cooperative, lying in bed in no distress Eyes: scleral anicteric Mouth: mucous membranes moist/pink Neck: supple Chest & Lungs: clear to auscultation, no adventitious breath sounds, no crackles , no wheeze Cardiovascular: no murmurs/rubs/gallops, regular rate/rhythm Pulses: Radial (present and equal), Dorsalis Pedi (present and equal) Abdomen: soft, normoactive bowel tones Musculoskeletal: unremarkable, no swollen or erythematous joints Extremities: no edema Neurological: Normal speech IVs and Medications Medications Reviewed: Medications were reviewed in detail Lab and Diagnostics Laboratory Tests Test 09/03/16 06:45 White Blood Count 20.8th/mm3 (3.8-10.1) Red Blood Count 2.90mil/mm3 (3.90-5.20) Hemoglobin 10.0g/dL (12.0-15.6) Hematocrit 29.3% (35.0-46.0) Mean Corpuscular Volume 101.0fL (81-100) Mean Corpuscular Hemoglobin 34.5pg (27.0-35.0) Mean Corpuscular Hemoglobin Concent 34.1% (32.0-37.0) Red Cell Distribution Width 13.4% (12.3-15.4) Platelet Count 252bil/L (150-400) Neutrophils (%) (Auto) 67.7% (40-74) Lymphocytes (%) (Auto) 21.4% (14-46) Monocytes (%) (Auto) 8.9% (4-12) Eosinophils (%) (Auto) 1.5% (0-5) Basophils (%) (Auto) 0.2% (0-3) Sodium Level 135mEq/L (134-144) Potassium Level 4.6mEq/L (3.5-5.2) Chloride Level 101mEq/L (97-108) Carbon Dioxide Level 21mmol/L (18-29) Blood Urea Nitrogen 13mg/dL (8-27) Creatinine 0.75mg/dL (0.57-1.00) Estimat Glomerular Filtration Rate 109mL/min (>59) Glucose Level 281mg/dL (60-99) Calcium Level 7.7mg/dL (8.5-10.1) Total Bilirubin 0.4mg/dL (0.0-1.2) Aspartate Amino Transf (AST/SGOT) 35U/L (0-50) Alanine Aminotransferase (ALT/SGPT) 39U/L (0-32) Alkaline Phosphatase 106U/L (25-165) Total Protein 5.6g/dL (6.4-8.4) Albumin 3.0g/dL (3.4-5.0) Triglycerides Level 181mg/dL (0-149) Cholesterol Level 149mg/dL (100-199) LDL Cholesterol, Calculated 86.800mg/dL (0-99) VLDL Cholesterol 36.200mg/dL HDL Cholesterol 26mg/dL (>39) Cholesterol/HDL Ratio 5.73 (0.0-4.4) Procalcitonin 15.87ng/mL (0.00-0.08) Microbiology 09/01/16 Urine Culture - Final, Complete Escherichia Coli Result Diagram: 09/02/16 0235 09/02/16 0235 Microbiology Microbiology 09/01/16 Gram Stain - Final, Resulted 09/01/16 Culture & Sensitivity - Preliminary, Resulted No growth to date 09/01/16 Adenovirus DNA (PCR) - Final, Complete Not Detected 09/01/16 Coronavirus 229E PCR - Final, Complete Not Detected 09/01/16 Coronavirus HKU1 PCR - Final, Complete Not Detected 09/01/16 Coronavirus NL63 PCR - Final, Complete Not Detected 09/01/16 Coronavirus OC43 PCR - Final, Complete Not Detected 09/01/16 Influenza Type A (PCR) - Final, Complete Not Detected 09/01/16 Influenza Type B (PCR) - Final, Complete Not Detected 09/01/16 Human Metapneumovirus (PCR) (RAH) - Final, Complete Not Detected 09/01/16 Rhinovirus (PCR)(RAH) - Final, Complete Not Detected 09/01/16 Parainfluenza Virus Type 1 (PCR) - Final, Complete Not Detected 09/01/16 Parainfluenza Virus Type 2 (PCR) - Final, Complete Not Detected 09/01/16 Parainfluenza Virus Type 3 (PCR) - Final, Complete Not Detected 09/01/16 Parainfluenza Virus Type 4 (NAAT) - Final, Complete Not Detected 09/01/16 Respiratory Syncytial Virus (PCR)IL - Final, Complete Not Detected 09/01/16 Chlamydia pneumoniae (PCR) - Final, Complete Not Detected 09/01/16 Mycoplasma pneumoniae DNA Detection - Final, Complete 09/02/16 Urine Culture, > gram negative rods 09/01/16 blood culture = gram negative rods. Repeat pending. X-Rays, CTs and MRIs PROCEDURE: X-RAY CHEST ONE VIEW, PORTABLE ([id number]) INDICATIONS: fever TECHNIQUE: One view of the chest was acquired. COMPARISON: [facility], CR, XR CHEST 2VW, 11/19/2015, 9:26. FINDINGS: Surgical changes and devices: None. Lungs and pleura: No pleural effusions or pneumothorax. Lungs are clear. Mediastinum: Mediastinal contours appear normal. Heart size is normal. Bones and chest wall: No suspicious bony lesions. Overlying soft tissues appear unremarkable. IMPRESSION: 1. No acute cardiopulmonary disease. Dictated by: Walter Rodriguez M.D. on 09/01/2016 at 16:58 Approved by: Walter Rodriguez M.D. on 09/01/2016 at 16:59 Date of Service: 02/21/17 CT ABDOMEN AND PELVIS WITH CONTRAST IMPRESSION: 1. Right perinephric fat stranding could reflect acute pyelonephritis as it was not apparent on most recent prior exam. No nephrolithiasis or hydronephrosis seen. 2. Appendix is nonvisualized. No bowel obstruction or inflammation evident. 3. Hepatic steatosis. Findings are concordant with the preliminary report Dictated by: Ferny Romero M.D. on 09/02/2016 at 8:29 Approved by: Ferny Romero M.D. on 09/02/2016 at 8:36 Assessment & Plan 75-year-old female with diabetes type 2, hypertension, presented to the ER with complaint of shaking chills, fever, weakness. This is day 3. 1. Severe sepsis with source of pyelonephritis, present on admission, Resolved -Pt met Severe criteria with T 39.9, WBC 17.9, RR 22 and encephalopathy. Patient does still have elevated WBC -Lactic acid initially 2.8, now normal -IVF NS at 125ml/hr initially, now 60ml/hr -Treat underlying condition -CBC 2. Pyelonephritis, present on admission, resolving -CT abdomen showed a right perinephric fat stranding that could be "acute pyelonephritis as it was not apparent on most recent prior exam" consistent with her flank pain -LP performed in ER, did not demonstrate meningitis findings -CXR in ER reported as normal -Urine culture showed >100,000 CFU of gram negative rods, pending sensitivities -Blood cultures x2 drawn in ER showed gram negative rods, repeat is negative to date -Patient on Zosyn. Narrow coverage based upon sensitivities which are pending -Procalcitonin elevated at 17.16. Repeat ordered -IVF NS now at 60ml/hr 3. Diabetes mellitus type 2, insulin using, present on admission, ongoing -Patient had elevated glucose of 526 on admission, and received insulin in the ER. -Diabetic diet ordered, hgbA1c pending -Medium dose correctional scale, mealtime coverage, nighttime insulin -NOTE: Patient's son does not understand how to use insulin and he is the caregiver. Could not figure out what she actually takes at home. Will need to adjust the medication while here and educate them regarding the medications. -Diabetic education ordered (Maldivian-speaking) 4. Chronic constipation, present on admission, ongoing -Pt family reports history of constipation, and pt currently reports constipation -Pt has prn Miralax, senna etc. -Will consider enema if needed, but holding off at this time 5. Acute hyponatremia, present on admission, resolved -Likely dehydration -Resolved with IVF NS -BMP 6. Chronic pain treated with narcotic pain medication, present on admission, ongoing -Continued reported home dose of Vicodin. Patient states uses 1 pill daily about 5 days out of the week. 7. Chronic hyperlipidemia -Need accurate medicines -Lipid panel normal 8. Hypertension -Pt had been hypotensive until today -Unclear what home medications pt is on. Unfortunately, list we have showed lisinopril but have note that says adverse reaction to lisinopril as well. Patient does not know what kind of reaction she has or if she is on lisinopril. -Continued losartan -Held HCTZ in the setting of infection Expect discharge to home +/- home health to help with medications in the next 3- 4 days. PCP: Dr Subramanian( [facility]) Code: Full VTE Prophylaxis: Sub-Q Heparin (Unfractionated) VTE Mechanical Devices: Intermittant Pneumatic CD Resuscitation Status: CPR: Attempt Resuscitation Attending Statement The patient was seen and examined together with Dr. Sarkar on 09-03-16 and I agree with the history, exam and plan as outlined in the note above. Shanti Sarkar DO Sep 03, 2016 06:59 Mi De La Torre MD Sep 04, 2016 14:06
--- NOTE | 2016-09-03 22:34 | NUR ---
Nausea Pt complained of nausea. Administered Zofran 4mg IV push, effective. Nausea resolved. No further complaints of n/v. Call light within reach. Pleasant and cooperative with care.
[2016-09-04] VITALS (7 sets, daily range): BP systolic 139–178; BP diastolic 69–76; PULSE 63–80; RESP 16–22; O2SAT 94–97
[2016-09-04 07:28] LABS: BASOPHILS % (AUTO) 0.3 % (0-3); EOSINOPHILS % (AUTO) 1.1 % (0-5); MONOCYTES % (AUTO) 12.5 % (4-12); Mean Corpuscular Hemoglobin 34.8 pg (27.0-35.0); Platelet Count 269 bil/L (150-400)
--- NOTE | 2016-09-04 07:28 | PCM.EDPN ---
ED Note Date of Service Sep 04, 2016 CODE STROKE called this am when RN noted left facial droop with tongue deviation Patient is currently an inpatient being treated for sepsis. Due to time of day , attending physician is not immediately available. resident physicians are. Per protocol, patient was taken to CT and then transported to the emergency room for access to neuro stroke capacity if needed PE: 170/86 RR 14 HT 58 Rapid assessment was done by me in the emergency department to help with resident physician oversight and guidance NIH score of 3, minor left facial droop and no tongue deviation regular rate and rhythm no murmurs to move all extremities, able to speak question of slightly slurred speech versus communication issues with language differences Medical Decision Making: speaking woman slight left facial droop and tongue no longer deviating. Nurse notes that she also had some left-sided weakness this morning, she has not noticed this left-sided weakness nor the left facial droop at 4 in the morning with the last check. 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 Her son was available in the emergency department states that he had to help her get to the bathroom 3 times last night and noted that she seemed significantly weaker and needed more assistance on the left side. In light of this information the time of onset is unknown, likely last night, and she is not a TPA candidate Similarly, relative contraindications include prior stroke, NIH score of only 3 , and current DVT prophylaxis [facility] stroke team had been contacted. Discussion with them. After identifying the unknown time of onset, likely last night, and identifying the patient clearly is not a TPA candidate, thanked them for for their assistance and did not request any additional input. Assessment; TIA versus new right-sided stroke with left side effects versus sepsis with exacerbation of prior stroke deficits Plan; return to the floor, will need a swallow eval Patient examined evaluated and discussed with Drs. Peters and Gillian Alaniz MD Sep 04, 2016 07:28
[2016-09-04] MEDS ORDERED: hydrALAZINE 20 mg/mL Inj IVPUSH PRN (07:30)
[2016-09-04] MEDS ORDERED: Labetalol 5 mg/mL 4 mL Inj IVPUSH PRN ×2 (07:30)
[2016-09-04 07:45] LABS: INR 0.94 ratio
--- NOTE | 2016-09-04 07:53 | NUR ---
PO Pt placed on strict NPO this AM following Code Stroke. Upon entering pt's room, she had finished breakfast and was sipping on H20 with frequent coughing. Reiterated that pt is on strict NPO with family and pt, they report understanding. Per son, "She was really hungry though." Addendum: 09/04/16 at 1747 by JD FELIZ RN Pt tolerating STIM diet with no cough noted.
[2016-09-04] MEDS: Piperacillin-Tazo 3.375 Gm Inj 3.375 GM in Dextrose 5% Minibag Plus 50 ML IV SCH (07:56)
[2016-09-04] MEDS: Heparin 5,000 Unit/mL Inj SUBQ SCH ×2 (07:56→20:23)
[2016-09-04] MEDS: Sodium Chloride LOK Flush 10 mL Syringe IVFLUSH SCH ×2 (07:56→16:30)
--- NOTE | 2016-09-04 08:02 | NUR ---
CODE STROKE Pt up with HAT AND CAP OPENER at 0630 to [facility]. Aid noticed pt tottering while walking, pt c/o headache, dizziness. Vitals: Temp 37.4, HR 74, BP 178/70, RR 22, RA. B. RN assessed pt Neuro's. Pt had weak director channel, unable to smile, tongue deviated left. Able to feel facial sensations, pupils WNL, Able to touch finger to nose with some difficulty. At 0645 code stroke called. ED RN, STRAIGHT TRUCK DRIVER assessed pt further. [address] with residents. [address] In ED room #[address] Neal. Vitals: 170/55, HR 69, Sats 98%, RR 17, Temp 37.9. 0711 CT back, negative. NIH score: 3. Stroke swallow screen completed by ED RN, chioma Nogueira. Pt is strict NPO. STAT Swallow Evaluation ordered. 0730 pt returned to [id number]. RN administered Aspirin Suppository per MD orders. Pt in room resting. Son at bedside. Will continue to monitor.
[2016-09-04 08:06] LABS: Magnesium 1.9 mg/dL (1.6-2.6)
[2016-09-04] MEDS: Insulin LISPRO 300 Unit/3 mL Inj SUBQ SCH ×4 (08:27→22:19)
--- NOTE | 2016-09-04 09:01 | NUR ---
BM Pt c/o abd pain this morning. Noted abd to be distended, soft, tender to palpation. Via inspector government property, pt reported last BM was "2 weeks ago...maybe longer." Son at bedside, states she had been ordered to take MiraLax and that she took it at home. BT hypoactive. Pt NPO pending swallow MD yasmani cookpaged for suppository.
--- NOTE | 2016-09-04 09:09 | NUR ---
Off unit Pt off unit to MRI, paintless dent repair technician notified. Addendum: 09/04/16 at 0957 by JD FELIZ RN Pt back on unit, TELE replaced and tech notified.
[2016-09-04] MEDS: Calcium Carbonate (Oyster Shell) 500 mg Tablet PO SCH ×3 (10:08→20:17)
[2016-09-04] MEDS: HYDROcodone-APAP 7.5-325 mg Tablet PO PRN (10:13)
--- NOTE | 2016-09-04 10:35 | NUR ---
Evaluation completed. Please go to "Notes" then click on "Assessments and Notes" (bottom left corner of screen). Then select appropriate discipline tab on top of screen.
--- NOTE | 2016-09-04 10:57 | DRSVH ---
PROCEDURE: CT BRAIN (TPA) ([id number]) INDICATIONS: LT SIDED FACIAL DROOP TECHNIQUE: Noncontrast 4.5 mm thick angled axial sections acquired from the foramen magnum to the vertex, with c oronal reformats. COMPARISON: None. FINDINGS: Image quality: Excellent. CSF spaces: Basal cisterns are patent. No extra-axial fluid collections. The ventricles are symmet gabrielle in size and shape. Brain: No intracranial bleeds or masses. There is cerebral volume loss for age, with resultant vent ricular and sulcal prominence. There are periventricular and deep white matter chronic small vessel ischemic changes. There is intracranial internal carotid artery atherosclerosis. Skull and face: Calvarium and visualized facial bones appear intact, without suspicious lesions. Sinuses: Visualized sinuses and mastoids are clear. IMPRESSION: 1. No acute intracranial process. 2. Mild atrophy and chronic microvascular ischemic changes. This study fulfills neurological imaging criteria for inclusion or exclusion of acute stroke therapie s based on available published neurological guidelines. Dictated by: Sharron Erazo M.D. on 09/04/2016 at 10:55 Approved by: Sharron Erazo M.D. on 09/04/2016 at 10:56
--- NOTE | 2016-09-04 11:19 | DRSVH ---
PROCEDURE: MRI STROKE PROTOCOL ([id number]) Pre- and post-contrast brain MRI, non-contrast brain MR angiogram, pre- and postcontrast neck MR aliyah ogram INDICATIONS: left sided facial droop, TIA vs CVA TECHNIQUE: Brain: Noncontrast axial T1 spin echo, axial T2 fast spin echo, sagittal and axial FLAIR, coronal T2 fast spin echo, axial gradient echo, axial diffusion and ADC through the brain. After the administr ation of contrast, axial 3D VIBE of the cranial vasculature and brain. Brain MRA: Non-contrast 3-D time of flight MR angiogram, with multiple gdmjxlx-bciusiyln-ffejubjuyt (MIP) reformats performed. Neck MRA: Axial and sagittal TruFISP through the neck. Coronal dynamic MR angiogram during administ ration of contrast in the arterial and venous phases, with 3-dimenstional dxisvii-bjqhdczos-mafmcswcy n (MIP) reformats constructed from subtraction images. COMPARISON: [facility], CT, BRAIN (TPA), 09/04/2016, 7:00. FINDINGS: Image quality: Excellent. The ventricular system and cortical sulci demonstrate atrophy, consistent for the patient's stated ag e. There are areas of increased T2/FLAIR signal intensity within the periventricular and subcortical white matter. There is no acute intra-or extra axial fluid collection. No acute hemorrhage, mass les ion or midline shift. Brainstem is unremarkable. There are no areas of restricted diffusion. Globes a re symmetrical. Sinuses demonstrate trace pansinus mucosal thickening. Mild fluid is present within t he mastoid air cells bilaterally, right greater than left. Osseous structures are intact. The posterior circulation demonstrates a right vertebral artery dominance. Basilar artery and posteri or cerebral arteries demonstrate no areas of hemodynamically significant stenosis, vascular occlusion or aneurysmal dilation. Posterior communicating arteries are within normal limits. The anterior circulation, including the anterior and middle cerebral arteries, as well as internal ca rotid arteries demonstrates no areas of hemodynamically significant stenosis, vascular occlusion or a neurysmal dilation. The origins of the left and right common, internal and external carotid arteries demonstrate no areas of hemodynamically significant stenosis, vascular occlusion or aneurysmal dilation. Motion is presen t at the origins of the vertebral arteries. There appears to be no gross hemodynamically significant stenosis at the origin of the right vertebral artery. The origin of the left vertebral artery appears to be tortuous and portions are obscured secondary to motion. Underlying stenosis cannot be excluded . Aortic arch demonstrates conventional anatomy. Limited, visualized portions subclavian vasculature are unremarkable. IMPRESSION: 1. No acute intracranial process. No acute ischemia. 2. Mild atrophy and chronic microvascular ischemic changes. 3. No areas of hemodynamically significant stenosis, vascular occlusion or aneurysmal dilation withi n the anterior circulation. 4. No areas of hemodynamically significant stenosis, vascular occlusion or aneurysmal dilation within the posterior circulation. 5. Partially obscured evaluation of the vertebral artery origins particularly on the left secondary t o tortuosity and motion. Underlying stenosis within this region cannot be excluded. Otherwise, no are as of hemodynamically significant stenosis, vascular occlusion or aneurysmal dilation within the neck vasculature. The estimate of stenosis included in the report of the imaging study was calculated using the NASCET method Dictated by: Sharron Erazo M.D. on 09/04/2016 at 11:03 Approved by: Sharron Erazo M.D. on 09/04/2016 at 11:17
[2016-09-04] MEDS: 0.9% Sodium Chloride 1,000 ML IV SCH (14:42)
[2016-09-04] MEDS: cefTRIAXone Inj 2,000 MG in Dextrose 5% Minibag Plus 50 ML IV SCH (14:42)
--- NOTE | 2016-09-04 16:27 | NUR ---
Social Work: Initial Assessment Data: Pt is a 75 y/o female admitted for sepsis. Pt's PCP is Dr Subramanian, pt's insurance is private pay. EMR reviewed, no readmit score listed. AGRICULTURAL EQUIPMENT DESIGN ENGINEER met with pt at bedside with chemist [employer] and pt's family, role explained. Pt states she lives with her family in [place] where there are 3 steps to enter and she uses a walker. Pt states she does not drive, has no hx of HH or SNF, no LTC or VA benefits, and is not a caregiver. Pt declines HH or SNF at this time. AGRICULTURAL EQUIPMENT DESIGN ENGINEER explained PT recommendations. Pt states her son is a PT and that she has been walking with him and has no need for HH or SNF. Likely no d/c planning needs at this time. AGRICULTURAL EQUIPMENT DESIGN ENGINEER will continue to follow if needs arise. Assessment: pt who is independent at baseline. Plan: Pt will d/c home via POV when medically stable. Likely no d/c planning needs at this time. AGRICULTURAL EQUIPMENT DESIGN ENGINEER will continue to follow if needs arise. KATLYN Rdz Addendum: 09/04/16 at 1629 by CHECO ACEVES Amended: Links added.
--- NOTE | 2016-09-04 16:30 | NUR ---
Social Work: Brief Note [facility] care application given. [facility] called, state they have seen pt and application for [facility] has been sent. KATLYN Rdz
--- NOTE | 2016-09-04 16:44 | PCM.PNMED ---
Subjective Date of Service Sep 04, 2016 Subjective 75-year-old Lao-speaking female with diabetes type 2, hypertension, past CVA who presented to the ER with complaint of shaking chills, fever, weakness. This is day 3. This morning, patient's nurse reported that she had left-sided facial drooping noted at 4:30 a.m. Earlier the she had helped the patient up to the bathroom and noticed that she was shaking. Nurse called stroke protocol (see details below). After the CT w/o showed no hemorrhage, it was determined that she was not a candidate for TPA and NIH stroke scale was 3, patient was returned to her room to continue stroke protocol. A couple of hours later, patient expressed feeling the same that she has been (weak) but was in good spirits. She was awaiting her swallow evaluation so that she can eat again. Denies nausea or vomiting. Still has a bit of a headache (common for this patient). She still has constipation. . Exam Vital Signs Vital Sign - Last Date Time Temp Pulse Resp B/P Pulse Ox O2 Delivery O2 Flow Rate FiO2 09/04/16 14:58 36.6 63 18 139/76 94 Room Air 09/02/16 13:07 3.00 Intake and Output 09/03/16 09/03/16 09/04/16 Cumulative From/Thru 15:00 23:00 07:00 09/01/16 16:48 - 09/04/16 06:39 Intake Total 2331 ml 782 ml 9197 ml Output Total 900 ml 2225 ml Balance 1431 ml 782 ml 6972 ml Intake Oral 1340 ml 2976 ml IV Total 991 ml 782 ml 6221 ml Output Urine Total 900 ml 2225 ml # Voids 3 # Bowel Movements 0 0 Exam General: alert, oriented x3, cooperative, lying in bed in no distress Eyes: scleral anicteric Mouth: mucous membranes moist/pink Neck: supple Chest & Lungs: clear to auscultation, no adventitious breath sounds, no crackles , no wheeze Cardiovascular: no murmurs/rubs/gallops, regular rate/rhythm Pulses: Radial (present and equal), Dorsalis Pedi (present and equal) Abdomen: soft, normoactive bowel tones Musculoskeletal: unremarkable, no swollen or erythematous joints Extremities: no edema Exam in the ED - Neurological: Normal speech for her Residual left-sided weakness normal for her No tongue deviation, field cut in vision or pronator drift. Mild finger ataxia on the right which gave her a 1 in the NIH stroke protocol. Total NIH stroke exam was 3. Later in the afternoon, patient was observed walking with physical therapy and even was joking with me while she was walking past me using her walker. Her gait was slow and careful but besides the walker, needed no assistance. IVs and Medications Medications Reviewed: Medications were reviewed in detail Lab and Diagnostics Result Diagram: 09/04/1671809/04/16718 Microbiology Microbiology 09/01/16 Gram Stain - Final, Resulted 09/01/16 Culture & Sensitivity - Preliminary, Resulted No growth to date 09/01/16 Adenovirus DNA (PCR) - Final, Complete Not Detected 09/01/16 Coronavirus 229E PCR - Final, Complete Not Detected 09/01/16 Coronavirus HKU1 PCR - Final, Complete Not Detected 09/01/16 Coronavirus NL63 PCR - Final, Complete Not Detected 09/01/16 Coronavirus OC43 PCR - Final, Complete Not Detected 09/01/16 Influenza Type A (PCR) - Final, Complete Not Detected 09/01/16 Influenza Type B (PCR) - Final, Complete Not Detected 09/01/16 Human Metapneumovirus (PCR) (RAH) - Final, Complete Not Detected 09/01/16 Rhinovirus (PCR)(RAH) - Final, Complete Not Detected 09/01/16 Parainfluenza Virus Type 1 (PCR) - Final, Complete Not Detected 09/01/16 Parainfluenza Virus Type 2 (PCR) - Final, Complete Not Detected 09/01/16 Parainfluenza Virus Type 3 (PCR) - Final, Complete Not Detected 09/01/16 Parainfluenza Virus Type 4 (NAAT) - Final, Complete Not Detected 09/01/16 Respiratory Syncytial Virus (PCR)NH - Final, Complete Not Detected 09/01/16 Chlamydia pneumoniae (PCR) - Final, Complete Not Detected 09/01/16 Mycoplasma pneumoniae DNA Detection - Final, Complete 09/02/16 Urine Culture, lyons-sensitive E. coli 09/01/16 blood culture = gram negative rods. 09/02/16 Repeat negative for 48 hours X-Rays, CTs and MRIs PROCEDURE: X-RAY CHEST ONE VIEW, PORTABLE ([id number]) INDICATIONS: fever TECHNIQUE: One view of the chest was acquired. COMPARISON: [facility], CR, XR CHEST 2VW, 11/19/2015, 9:26. FINDINGS: Surgical changes and devices: None. Lungs and pleura: No pleural effusions or pneumothorax. Lungs are clear. Mediastinum: Mediastinal contours appear normal. Heart size is normal. Bones and chest wall: No suspicious bony lesions. Overlying soft tissues appear unremarkable. IMPRESSION: 1. No acute cardiopulmonary disease. Dictated by: Walter Rodriguez M.D. on 09/01/2016 at 16:58 Approved by: Walter Rodriguez M.D. on 09/01/2016 at 16:59 Date of Service: 09/02/16 CT ABDOMEN AND PELVIS WITH CONTRAST IMPRESSION: 1. Right perinephric fat stranding could reflect acute pyelonephritis as it was not apparent on most recent prior exam. No nephrolithiasis or hydronephrosis seen. 2. Appendix is nonvisualized. No bowel obstruction or inflammation evident. 3. Hepatic steatosis. Findings are concordant with the preliminary report Dictated by: Ferny Romero M.D. on 09/02/2016 at 8:29 Approved by: Ferny Romero M.D. on 09/02/2016 at 8:36 09/04/16 MRI STROKE PROTOCOL Pre- and post-contrast brain MRI, non-contrast brain MR angiogram, pre- and postcontrast neck MR angiogram IMPRESSION: 1. No acute intracranial process. No acute ischemia. 2. Mild atrophy and chronic microvascular ischemic changes. 3. No areas of hemodynamically significant stenosis, vascular occlusion or aneurysmal dilation within the anterior circulation. 4. No areas of hemodynamically significant stenosis, vascular occlusion or aneurysmal dilation within the posterior circulation. 5. Partially obscured evaluation of the vertebral artery origins particularly on the left secondary to tortuosity and motion. Underlying stenosis within this region cannot be excluded. Otherwise, no areas of hemodynamically significant stenosis, vascular occlusion or aneurysmal dilation within the neck vasculature. The estimate of stenosis included in the report of the imaging study was calculated using the NASCET method Dictated by: Sharron Erazo M.D. on 09/04/2016 at 11:03 Approved by: Sharron Erazo M.D. on 09/04/2016 at 11:17 09/04/16 CT BRAIN (TPA) IMPRESSION: 1. No acute intracranial process. 2. Mild atrophy and chronic microvascular ischemic changes. This study fulfills neurological imaging criteria for inclusion or exclusion of acute stroke therapies based on available published neurological guidelines. Dictated by: Sharron Erazo M.D. on 09/04/2016 at 10:55 Approved by: Sharron Erazo M.D. on 09/04/2016 at 10:56 Assessment & Plan 75-year-old female with diabetes type 2, hypertension, presented to the ER with complaint of shaking chills, fever, weakness. This is day 4. 1. Altered Mental Status, Acute - Possibly TIA since patient is at her baseline by noon - Symptoms present at 4:30 a.m. per nurse, but also patient was shaking hours earlier. Last seen at baseline was unclear. 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 The signs, if any, were mild and it was difficult to ascertain what signs were new. Son did say her smile was different. - NIH stroke scale = 3 - Brain CT without showed no acute intracranial process and only mild atrophy and chronic microvascular ischemic changes. - Determined not to be a candidate for TPA (timing) - MRI Angiogram stroke protocol showed no acute ischemia - Passed speech swallow evaluation, working with physical therapy, OT evaluation ordered - Nurse Q4 hrs neuro checks - Echocardiogram pending 2. Severe sepsis with source of pyelonephritis, present on admission, Resolved -Pt met Severe criteria with T 39.9, WBC 17.9, RR 22 and encephalopathy. Patient does still have elevated WBC -Lactic acid initially 2.8, now normal -IVF NS at 125ml/hr initially, now 60ml/hr -Treat underlying condition -CBC 3. Pyelonephritis, present on admission, resolving -CT abdomen showed a right perinephric fat stranding that could be "acute pyelonephritis as it was not apparent on most recent prior exam" consistent with her flank pain -LP performed in ER, did not demonstrate meningitis findings -CXR in ER reported as normal -Urine culture showed lyons-sensitive E.coli -Blood cultures x2 drawn in ER showed lyons-sensitive E.coli. Repeat blood cultures negative at 48 hours. -Patient was on Zosyn but now changed to Ceftriaxone 2g daily. -Procalcitonin elevated at 17.16. Repeat 7.94. -IVF NS now at 60ml/hr 4. Diabetes mellitus type 2, insulin using, present on admission, ongoing -Patient had elevated glucose of 526 on admission, and received insulin in the ER. -Diabetic diet ordered, hgbA1c pending -Yesterday, Lantus 16 units at night. 5 units prior to each meal (15). 8 units after each meal (24). Will continue to adjust and send patient home on a good regimen. -NOTE: Patient's son does not understand how to use insulin and he is the caregiver. Could not figure out what she actually takes at home. -Diabetic education completed 5. Chronic constipation, present on admission, ongoing -Pt family reports history of constipation, and pt currently reports constipation -Pt has prn Miralax, senna etc. Added Dulcolax suppository -Will consider enema if needed, but holding off at this time 6. Acute hyponatremia, present on admission, resolved -Likely dehydration -Resolved with IVF NS -BMP 7. Chronic pain treated with narcotic pain medication, present on admission, ongoing -Continued reported home dose of Vicodin. Patient states uses 1 pill daily about 5 days out of the week. 8. Chronic hyperlipidemia -Need accurate medicines -Lipid panel normal 9. Hypertension -Pt had been hypotensive until today -Unclear what home medications pt is on. Unfortunately, list we have showed lisinopril but have note that says adverse reaction to lisinopril as well. Patient does not know what kind of reaction she has or if she is on lisinopril. -Continued losartan -Held HCTZ in the setting of infection Expect discharge to home +/- home health to help with medications in the next 3- 4 days. PCP: Dr Subramanian( [facility]) Code: Full VTE Prophylaxis: Sub-Q Heparin (Unfractionated) VTE Mechanical Devices: Intermittant Pneumatic CD Resuscitation Status: CPR: Attempt Resuscitation Attending Statement The patient was seen and examined together with Dr. Sarkar on 09/04/2016 and I agree with the history, exam and plan as outlined in the note above. Shanti Sarkar DO Sep 04, 2016 16:43 Erik Gilliland MD Sep 05, 2016 13:17
--- NOTE | 2016-09-04 19:05 | NUR ---
Bowel movements Pt stated she hasn't had a bowel movement in the last two weeks. Bowel medications given to help with constipation. Pt states that she had one very small, hard bowel movement during the shift. Encouraged fluid intake, will continue to monitor.
[2016-09-04] MEDS: Polyethylene Glycol (PEG) 17 Gm Powder PO PRN (20:31)
[2016-09-05] VITALS (8 sets, daily range): BP systolic 119–161; BP diastolic 65–76; PULSE 59–77; RESP 18–20; O2SAT 94–98
[2016-09-05] MEDS: Sodium Chloride LOK Flush 10 mL Syringe IVFLUSH SCH ×3 (00:30→16:30)
[2016-09-05] MEDS: 0.9% Sodium Chloride 1,000 ML IV SCH ×2 (06:53→23:26)
[2016-09-05 07:11] LABS: BASOPHILS % (AUTO) 0.2 % (0-3); EOSINOPHILS % (AUTO) 2.5 % (0-5); MONOCYTES % (AUTO) 13.4 % (4-12); Mean Corpuscular Hemoglobin 34.1 pg (27.0-35.0); Mean Corpuscular Volume 100.7 fL (81-100); NEUTROPHILS % (AUTO) 60.6 % (40-74); Platelet Count 287 bil/L (150-400)
[2016-09-05] MEDS: Insulin LISPRO 300 Unit/3 mL Inj SUBQ SCH ×4 (08:29→21:05)
[2016-09-05] MEDS: Heparin 5,000 Unit/mL Inj SUBQ SCH ×2 (08:30→21:05)
[2016-09-05] MEDS: Calcium Carbonate (Oyster Shell) 500 mg Tablet PO SCH ×3 (08:30→21:06)
[2016-09-05] MEDS: Polyethylene Glycol (PEG) 17 Gm Powder PO PRN (09:58)
--- NOTE | 2016-09-05 10:11 | NUR ---
NUTRITION ASSESSMENT: ASSESS: Pt is a 75yo F admitted for sepsis. Code stroke was called on pt 09/04. She was evaluated by ST and placed on stimulation diet due to weakness. Prior to 09/04, pt was on a diabetic diet with good PO at 50-100%. Pt continues to experience constipation. PMHX: T2DM, HLD, HTN, Constipation LABS: Reviewed. Bun 7, Glu 234, Ca 8.1, ALT 33, Alb 3.0 MEDS: Reviewed. Bisacodyl, insulin, Zofran, senna, miralax GI: 0 BM, receiving bowel meds SKIN: Matty 19 CURRENT WTS: 69.5kg, BMI 29.9kg/mw, admit wt67.2kg, IBW 45.5kg DIET: stimulation, PO bites-100% EST. NEEDS: wt Kcals: 1400-1540kcal/day (20-22kcal/kg) Pro: 55-70g/day (1.2-1.5g/kg IBW) NUTRITION DIAGNOSIS: 1.) Chew/swallow difficulty related to CVA/weakness as evidence by need for stimulation diet per ST. 2.) Altered nutrition related lab values related to uncontrolled DM as evidence by A1C of 11.9 NUTRITION INTERVENTION: 1.) Advance diet per ST 2.) Once diet advanced past stimulation, will evaluated for need for supps/snacks 3.) DM diet education provided 09/03 MONITOR / EVAL: ST, diet advance, PO, wt, BM, labs, POC, nutrition status. Will continue to monitor per high nutrition risk guidelines.
--- NOTE | 2016-09-05 11:04 | PCM.PNMED ---
Subjective Date of Service Sep 05, 2016 Subjective 75-year-old female with diabetes type 2, hypertension, presented to the ER with complaint of shaking chills, fever, weakness. This is day 5. Today patient states that she is feeling stronger. She is lying in bed with her family in the room. She has some abdominal pain from the chronic constipation and we discussed additional measures to relieve the constipation. She had a small BM last night and is passing gas. Her frontal headache is bothering her again but states that she just took Tylenol and likely will be feeling better again. Denies nausea, vomiting, dizziness, chest pain. Exam Vital Signs Vital Sign - Last Date Time Temp Pulse Resp B/P Pulse Ox O2 Delivery O2 Flow Rate FiO2 09/05/16 07:55 77 09/05/16 06:08 37.2 18 159/65 96 Room Air 09/02/16 13:07 3.00 Intake and Output 09/04/16 09/04/16 09/05/16 Cumulative From/Thru 15:00 23:00 07:00 09/01/16 16:48 - 09/05/16 06:53 Intake Total 200 ml 1222 ml 1489 ml 46341 ml Output Total 2200 ml 375 ml 300 ml 5100 ml Balance -2000 ml 847 ml 1189 ml 8008 ml Intake Oral 200 ml 545 ml 700 ml 4421 ml IV Total 677 ml 789 ml 8687 ml Output Urine Total 2200 ml 375 ml 300 ml 5100 ml # Voids 3 6 # Bowel Movements 0 0 0 0 Exam General: alert, oriented x3, cooperative, lying in bed in no distress, speaking clearly Eyes: scleral anicteric Mouth: mucous membranes moist/pink Neck: supple Chest & Lungs: clear to auscultation, no adventitious breath sounds, no crackles , no wheeze Cardiovascular: no murmurs/rubs/gallops, regular rate/rhythm Pulses: Radial (present and equal), Dorsalis Pedi (present and equal) Abdomen: distended and mildly firm, normoactive bowel tones Musculoskeletal: unremarkable, no swollen or erythematous joints Extremities: no edema, no calf tenderness IVs and Medications Medications Reviewed: Medications were reviewed in detail Lab and Diagnostics Result Diagram: 09/05/16 0630 09/05/1630 Microbiology Microbiology 09/01/16 Gram Stain - Final, Resulted 09/01/16 Culture & Sensitivity - Preliminary, Resulted No growth to date 09/01/16 Adenovirus DNA (PCR) - Final, Complete Not Detected 09/01/16 Coronavirus 229E PCR - Final, Complete Not Detected 09/01/16 Coronavirus HKU1 PCR - Final, Complete Not Detected 09/01/16 Coronavirus NL63 PCR - Final, Complete Not Detected 09/01/16 Coronavirus OC43 PCR - Final, Complete Not Detected 09/01/16 Influenza Type A (PCR) - Final, Complete Not Detected 09/01/16 Influenza Type B (PCR) - Final, Complete Not Detected 09/01/16 Human Metapneumovirus (PCR) (RAH) - Final, Complete Not Detected 09/01/16 Rhinovirus (PCR)(RAH) - Final, Complete Not Detected 09/01/16 Parainfluenza Virus Type 1 (PCR) - Final, Complete Not Detected 09/01/16 Parainfluenza Virus Type 2 (PCR) - Final, Complete Not Detected 09/01/16 Parainfluenza Virus Type 3 (PCR) - Final, Complete Not Detected 09/01/16 Parainfluenza Virus Type 4 (NAAT) - Final, Complete Not Detected 09/01/16 Respiratory Syncytial Virus (PCR)MT - Final, Complete Not Detected 09/01/16 Chlamydia pneumoniae (PCR) - Final, Complete Not Detected 09/01/16 Mycoplasma pneumoniae DNA Detection - Final, Complete 09/02/16 Urine Culture, lyons-sensitive E. coli 09/01/16 blood culture = gram negative rods. 09/02/16 Repeat negative for 48 hours X-Rays, CTs and MRIs PROCEDURE: X-RAY CHEST ONE VIEW, PORTABLE ([id number]) INDICATIONS: fever TECHNIQUE: One view of the chest was acquired. COMPARISON: [facility], CR, XR CHEST 2VW, 11/19/2015, 9:26. FINDINGS: Surgical changes and devices: None. Lungs and pleura: No pleural effusions or pneumothorax. Lungs are clear. Mediastinum: Mediastinal contours appear normal. Heart size is normal. Bones and chest wall: No suspicious bony lesions. Overlying soft tissues appear unremarkable. IMPRESSION: 1. No acute cardiopulmonary disease. Dictated by: Walter Rodriguez M.D. on 09/01/2016 at 16:58 Approved by: Walter Rodriguez M.D. on 09/01/2016 at 16:59 Date of Service: 09/02/16 CT ABDOMEN AND PELVIS WITH CONTRAST IMPRESSION: 1. Right perinephric fat stranding could reflect acute pyelonephritis as it was not apparent on most recent prior exam. No nephrolithiasis or hydronephrosis seen. 2. Appendix is nonvisualized. No bowel obstruction or inflammation evident. 3. Hepatic steatosis. Findings are concordant with the preliminary report Dictated by: Ferny Romero M.D. on 09/02/2016 at 8:29 Approved by: Ferny Romero M.D. on 09/02/2016 at 8:36 09/04/16 MRI STROKE PROTOCOL Pre- and post-contrast brain MRI, non-contrast brain MR angiogram, pre- and postcontrast neck MR angiogram IMPRESSION: 1. No acute intracranial process. No acute ischemia. 2. Mild atrophy and chronic microvascular ischemic changes. 3. No areas of hemodynamically significant stenosis, vascular occlusion or aneurysmal dilation within the anterior circulation. 4. No areas of hemodynamically significant stenosis, vascular occlusion or aneurysmal dilation within the posterior circulation. 5. Partially obscured evaluation of the vertebral artery origins particularly on the left secondary to tortuosity and motion. Underlying stenosis within this region cannot be excluded. Otherwise, no areas of hemodynamically significant stenosis, vascular occlusion or aneurysmal dilation within the neck vasculature. The estimate of stenosis included in the report of the imaging study was calculated using the NASCET method Dictated by: Sharron Erazo M.D. on 09/04/2016 at 11:03 Approved by: Sharron Erazo M.D. on 09/04/2016 at 11:17 09/04/16 CT BRAIN (TPA) IMPRESSION: 1. No acute intracranial process. 2. Mild atrophy and chronic microvascular ischemic changes. This study fulfills neurological imaging criteria for inclusion or exclusion of acute stroke therapies based on available published neurological guidelines. Dictated by: Sharron Erazo M.D. on 09/04/2016 at 10:55 Approved by: Sharron Erazo M.D. on 09/04/2016 at 10:56 Cardiac Echo Impressions Echocardiogram Report 09/05/2016 Interpretation Summary 1) Normal left ventricular thickness, size, wall motion, and systolic function (EF 60-65%). 2) Normal right ventricular size and function. 3) Mild to moderate mitral regurgitation. 4) Injection of contrast documented no interatrial shunt. 5) Mild pulmonary hypertension present, estimated systolic pulmonary pressure of 44mmHg. 6) No prior Echo available for comparison. Reading Physician:11:17 AM Assessment & Plan 75-year-old female with diabetes type 2, hypertension, presented to the ER with complaint of shaking chills, fever, weakness. This is day 5. 1. Altered Mental Status, Resolved - In retrospect, patient did not have a CVA On the morning of 09/04/16: - Symptoms present at 4:30 a.m. per nurse, but also patient was shaking hours earlier. Last seen at baseline was unclear. 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 The signs, if any, were mild and it was difficult to ascertain what signs were new, if any. Son did say her smile was different. - NIH stroke scale = 3 (but did have a prior CVA) - Brain CT without contrast showed no acute intracranial process and only mild atrophy and chronic microvascular ischemic changes. - MRI Angiogram stroke protocol showed no acute ischemia - Echocardiogram performed, see report above - Discontinued permissive hypertension after 24 hours 2. Severe sepsis with source of pyelonephritis, present on admission, Resolved -Pt met Severe criteria with T 39.9, WBC 17.9, RR 22 and encephalopathy. Patient does still have elevated WBC -Lactic acid initially 2.8, now normal -IVF NS at 125ml/hr initially, now discontinued -Treated underlying condition -CBC 3. Pyelonephritis, present on admission, resolving -CT abdomen showed a right perinephric fat stranding that could be "acute pyelonephritis as it was not apparent on most recent prior exam" consistent with her flank pain -LP performed in ER, did not demonstrate meningitis findings -CXR in ER reported as normal -Urine culture showed lyons-sensitive E.coli -Blood cultures x2 drawn in ER showed lyons-sensitive E.coli. Repeat blood cultures negative at 48 hours. -Patient was on Vanco, Zosyn then Ceftriaxone 2g daily. Will change to PO amoxicillin -Procalcitonin elevated at 17.16. Repeat 4.46. -IVF NS now at 60ml/hr 4. Diabetes mellitus type 2, insulin using, present on admission, ongoing -Patient had elevated glucose of 526 on admission, and received insulin in the ER. -Diabetic diet ordered, hgbA1c 11.9 -Fasting BG 222. Adjusting again: Glargine 10 units QHS. Lispro nutritional 5 units with meals. Medium dose correction scale. Will re-evaluate again tomorrow -NOTE: Patient's son does not understand how to use insulin and he is the caregiver. Could not figure out what she actually takes at home. -Diabetic education completed by patient and family -Discharge with a good insulin plan and educate patient and family 5. Chronic constipation, present on admission, ongoing -Pt family reports history of constipation, and pt currently reports constipation -Pt has prn Miralax, senna etc. Added Dulcolax suppository 6. Acute hyponatremia, present on admission, resolved -Likely dehydration -Resolved with IVF NS -BMP 7. Chronic pain treated with narcotic pain medication, present on admission, ongoing -Continued reported home dose of Vicodin. Patient states uses 1 pill daily about 5 days out of the week. 8. Chronic hyperlipidemia -Lipid panel normal 9. Hypertension -Pt had been hypotensive until today -Restarted losartan. >24 hours since possible TIA and discontinuing permissive hypertension. -Held HCTZ in the setting of infection Expect discharge to home +/- home health to help with medications on 09/07/16 PCP: Dr Subramanian( [facility]) Code: Full VTE Prophylaxis: Sub-Q Heparin (Unfractionated) VTE Mechanical Devices: Intermittant Pneumatic CD Resuscitation Status: CPR: Attempt Resuscitation Attending Statement The patient was seen and examined together with Dr. Sarkar on 09/05/2016 and I agree with the history, exam and plan as outlined in the note above. Shanti Sakrar DO Sep 05, 2016 11:04 Erik Gilliland MD Sep 06, 2016 13:16
--- NOTE | 2016-09-05 11:18 | DRSVH ---
[facility] [address] [address] Echocardiogram Report Name: MARITZA SHOOK CStudy Date: 09/05/2016 Height: 60 in Hospital Exam Location: [facility] Weight: 153 lb Gender: Female BSA: 1.7 m2 : 1940 Age: 75 yrs BP: 159/65 mmHg Reason For Study: STROKE Ordering Physician: [facility] Performed By: Dontrell Villanueva Referring Physician: Dr. Ally Subramanian Interpretation Summary 1) Normal left ventricular thickness, size, wall motion, and systolic function (EF 60-65%). 2) Normal right ventricular size and function. 3) Mild to moderate mitral regurgitation. 4) Injection of contrast documented no interatrial shunt. 5) Mild pulmonary hypertension present, estimated systolic pulmonary pressure of 44mmHg. 6) No prior Echo available for comparison. Procedure: A two-dimensional transthoracic echocardiogram with color flow and Doppler was performed. The study quality was technically good. There is no prior echocardiogram noted for this patient. A saline contrast injection was performed to assess for cardiac shunting. The patient was in normal sinus rhythm during the exam. Left Ventricle: The left ventricle is normal in size. There is normal left ventricular wall thickness. The ejection fraction is estimated to be 60-65%. Left ventricular systolic function is normal. There are no focal wall motion abnormalities. Right Ventricle: The right ventricle is normal in size and function. Atria: The left atrium is mildly dilated. Right atrial size is normal. Injection of contrast documented no interatrial shunt. Mitral Valve: There is mild mitral annular calcification. There is no evidence of mitral valve prolapse. There is mild to moderate mitral regurgitation. Aortic Valve: The aortic valve is normal in structure and function. The aortic valve is trileaflet. The aortic valve opens well. There is no aortic valve stenosis. No aortic regurgitation is present. Tricuspid Valve: The tricuspid valve leaflets are thin and pliable. There is moderate tricuspid regurgitation. The right ventricular systolic pressure is estimated at 44 mmHg assuming a right atrial pressure of 8 mm Hg. Pulmonic Valve: The pulmonic valve is not well seen, but is grossly normal. There is no pulmonic valvular regurgitation. Great Vessels: The aortic root is normal size. The dimensions of the ascending aorta are normal. The pulmonary artery is normal size. The IVC is dilated (diameter is greater than 2.1 cm) yet it collapses greater than 50% with a sniff. This suggests a right atrial pressure of 8 mm Hg. Pericardium/ Pleura There is no pericardial effusion. There is no pleural effusion. MMode/2D Measurements & Calculations LVIDd: 4.9 cm LA dimension: 3.6 cm RA long axis Ao root diam LVIDs: 2.9 cm FS: 40.7 % LA A2 area: 19.5 cm RA area Aortic Jxn EPSS: 0.48 cm LA A4 area: 22.1 cm IVSd: 0.97 cm LA length (vol): 5.8 cm : 14.9 cm asc Aorta LVPWd: 0.77 cm LA vol: 62.6 ml RA vol: 43.3 mlDiam: 3.0 cm LA vol index RA : 26.0 mm2 IVC diam: 2.2 cm LV valiente. diameter/BSA LV sys. diameter/BSA RVD1 (basal) RVD2 (mid) (cm/m^2): 2.9 (cm/m^2): 1.7 : 2.9 cm Doppler Measurements & Calculations Ao V2 max: 158.3 cm/secMV E max zenon MV E/A: 0.87 TR max zenon Ao max P.0 mmHg : 94.7 cm/sec Med Peak E' Zenon : 298.0 cm/sec Ao mean P.4 mmHg MV A max zenon TR max PG : 108.7 cm/sec E/E' med: 13.0 : 35.5 mmHg Pulm A Revs Dur PA V2 max MR ERO: 0.08 cm2 : 96.1 cm/sec MV A dur: 0.12 sec PA mean PG PA Accel Time : 0.12 sec MV dec time: 0.20 sec Ao V2 mean MR flow rate PA V2 mean : 110.3 cm/sec : 73.7 cm/sec Ao V2 VTI: 37.9 cm: 51.5 cm3/sec PA pr(Accel) MR PISA radius : 21.6 mmHg Pulm A Revs Dur - MV A Dur: -0.01 msec Reading Physician:11:17 AM
[2016-09-05] MEDS: cefTRIAXone Inj 2,000 MG in Dextrose 5% Minibag Plus 50 ML IV SCH (14:48)
--- NOTE | 2016-09-05 17:35 | NUR ---
Constipation Patient states that she has not had a BM in 2 weeks. Was given a suppository last night and had very small hard bowel movement. Was given senna and miralax in the AM. Still no result from those so she was given a suppository in the afternoon. Patient got up to the bathroom and tried to have a bowel movement with no success. Problem is ongoing.
[2016-09-05] MEDS ORDERED: Insulin GLARgine 100 Unit/mL Syringe SUBQ SCH (21:00)
[2016-09-06] VITALS (8 sets, daily range): BP systolic 164–189; BP diastolic 68–78; PULSE 62–72; RESP 16–20; O2SAT 95–98
[2016-09-06] MEDS: Sodium Chloride LOK Flush 10 mL Syringe IVFLUSH SCH ×3 (00:30→16:53)
--- NOTE | 2016-09-06 05:24 | NUR ---
Pain/Constipation Pt c/o 8/10 L lateral abdominal pain/pressure. Per patient, pain well controlled with PRN Tylenol. Fleet enema administered at 0250 for constipation, patient proceeded to have small formed BM with liquid. Family at bedside overnight assisting with care.
[2016-09-06 06:47] LABS: BASOPHILS % (AUTO) 0.4 % (0-3); EOSINOPHILS % (AUTO) 3.6 % (0-5); MONOCYTES % (AUTO) 17.2 % (4-12); Mean Corpuscular Volume 95.6 fL (81-100); NEUTROPHILS % (AUTO) 49.5 % (40-74); Platelet Count 333 bil/L (150-400)
[2016-09-06] MEDS: Insulin LISPRO 300 Unit/3 mL Inj SUBQ SCH ×4 (08:22→20:48)
[2016-09-06] MEDS: Calcium Carbonate (Oyster Shell) 500 mg Tablet PO SCH ×3 (08:23→20:47)
[2016-09-06] MEDS: Heparin 5,000 Unit/mL Inj SUBQ SCH ×2 (08:24→20:48)
[2016-09-06] MEDS ORDERED: Labetalol 5 mg/mL 4 mL Inj IVPUSH ONE ×3 (09:50→18:45)
[2016-09-06] MEDS: Polyethylene Glycol (PEG) 17 Gm Powder PO PRN (12:37)
--- NOTE | 2016-09-06 15:30 | PCM.PNMED ---
Subjective Date of Service Sep 06, 2016 Subjective 75-year-old female with diabetes type 2, hypertension, presented to the ER with complaint of shaking chills, fever, weakness. This is day 6. This morning the patient is very alert, has no headache. Her only complaint is constipation. She wanted to know why she had an infection and I explained the role of diabetes in her infection. The family was present and patient's daughter was translating into Israeli. Exam Vital Signs Vital Sign - Last Date Time Temp Pulse Resp B/P Pulse Ox O2 Delivery O2 Flow Rate FiO2 09/06/16 13:20 37.2 66 20 174/75 96 Room Air 09/02/16 13:07 3.00 Intake and Output 09/05/16 09/05/16 09/06/16 Cumulative From/Thru 15:00 23:00 07:00 09/01/16 16:48 - 09/06/16 06:06 Intake Total 1238 ml 1314 ml 15019 ml Output Total 375 ml 1000 ml 6475 ml Balance 863 ml 314 ml 9185 ml Intake Oral 545 ml 600 ml 5566 ml IV Total 693 ml 714 ml 84885 ml Output Urine Total 375 ml 1000 ml 6475 ml # Voids 2 8 # Bowel Movements 1 1 Exam General: alert, oriented x3, cooperative, sitting in a chair, speaking clearly Eyes: scleral anicteric Mouth: mucous membranes moist/pink Neck: supple Chest & Lungs: clear to auscultation, no adventitious breath sounds, no crackles , no wheeze Cardiovascular: no murmurs/rubs/gallops, regular rate/rhythm Pulses: Radial (present and equal), Dorsalis Pedi (present and equal) Abdomen: distended and mildly firm, normoactive bowel tones Musculoskeletal: unremarkable, no swollen or erythematous joints Extremities: no edema, no calf tenderness Neuro: Left-sided weakness (residual from stroke and per family at baseline) IVs and Medications Medications Reviewed: Medications were reviewed in detail Lab and Diagnostics Result Diagram: 09/06/16 0600 09/06/16 0600 Microbiology Microbiology 09/01/16 Gram Stain - Final, Resulted 09/01/16 Culture & Sensitivity - Preliminary, Resulted No growth to date 09/01/16 Adenovirus DNA (PCR) - Final, Complete Not Detected 09/01/16 Coronavirus 229E PCR - Final, Complete Not Detected 09/01/16 Coronavirus HKU1 PCR - Final, Complete Not Detected 09/01/16 Coronavirus NL63 PCR - Final, Complete Not Detected 09/01/16 Coronavirus OC43 PCR - Final, Complete Not Detected 09/01/16 Influenza Type A (PCR) - Final, Complete Not Detected 09/01/16 Influenza Type B (PCR) - Final, Complete Not Detected 09/01/16 Human Metapneumovirus (PCR) (RAH) - Final, Complete Not Detected 09/01/16 Rhinovirus (PCR)(RAH) - Final, Complete Not Detected 09/01/16 Parainfluenza Virus Type 1 (PCR) - Final, Complete Not Detected 09/01/16 Parainfluenza Virus Type 2 (PCR) - Final, Complete Not Detected 09/01/16 Parainfluenza Virus Type 3 (PCR) - Final, Complete Not Detected 09/01/16 Parainfluenza Virus Type 4 (NAAT) - Final, Complete Not Detected 09/01/16 Respiratory Syncytial Virus (PCR)PA - Final, Complete Not Detected 09/01/16 Chlamydia pneumoniae (PCR) - Final, Complete Not Detected 09/01/16 Mycoplasma pneumoniae DNA Detection - Final, Complete 09/02/16 Urine Culture, lyons-sensitive E. coli 09/01/16 blood culture = gram negative rods. 09/02/16 Repeat negative for 48 hours X-Rays, CTs and MRIs PROCEDURE: X-RAY CHEST ONE VIEW, PORTABLE ([id number]) INDICATIONS: fever TECHNIQUE: One view of the chest was acquired. COMPARISON: [facility], CR, XR CHEST 2VW, 11/19/2015, 9:26. FINDINGS: Surgical changes and devices: None. Lungs and pleura: No pleural effusions or pneumothorax. Lungs are clear. Mediastinum: Mediastinal contours appear normal. Heart size is normal. Bones and chest wall: No suspicious bony lesions. Overlying soft tissues appear unremarkable. IMPRESSION: 1. No acute cardiopulmonary disease. Dictated by: Walter Rodriguez M.D. on 09/01/2016 at 16:58 Approved by: Walter Rodriguez M.D. on 09/01/2016 at 16:59 Date of Service: 09/02/16 CT ABDOMEN AND PELVIS WITH CONTRAST IMPRESSION: 1. Right perinephric fat stranding could reflect acute pyelonephritis as it was not apparent on most recent prior exam. No nephrolithiasis or hydronephrosis seen. 2. Appendix is nonvisualized. No bowel obstruction or inflammation evident. 3. Hepatic steatosis. Findings are concordant with the preliminary report Dictated by: Ferny Romero M.D. on 09/02/2016 at 8:29 Approved by: Ferny Romero M.D. on 09/02/2016 at 8:36 09/04/16 MRI STROKE PROTOCOL Pre- and post-contrast brain MRI, non-contrast brain MR angiogram, pre- and postcontrast neck MR angiogram IMPRESSION: 1. No acute intracranial process. No acute ischemia. 2. Mild atrophy and chronic microvascular ischemic changes. 3. No areas of hemodynamically significant stenosis, vascular occlusion or aneurysmal dilation within the anterior circulation. 4. No areas of hemodynamically significant stenosis, vascular occlusion or aneurysmal dilation within the posterior circulation. 5. Partially obscured evaluation of the vertebral artery origins particularly on the left secondary to tortuosity and motion. Underlying stenosis within this region cannot be excluded. Otherwise, no areas of hemodynamically significant stenosis, vascular occlusion or aneurysmal dilation within the neck vasculature. The estimate of stenosis included in the report of the imaging study was calculated using the NASCET method Dictated by: Sharron Erazo M.D. on 09/04/2016 at 11:03 Approved by: Sharron Erazo M.D. on 09/04/2016 at 11:17 09/04/16 CT BRAIN (TPA) IMPRESSION: 1. No acute intracranial process. 2. Mild atrophy and chronic microvascular ischemic changes. This study fulfills neurological imaging criteria for inclusion or exclusion of acute stroke therapies based on available published neurological guidelines. Dictated by: Sharron Erazo M.D. on 09/04/2016 at 10:55 Approved by: Sharron Erazo M.D. on 09/04/2016 at 10:56 Cardiac Echo Impressions Echocardiogram Report 09/05/2016 Interpretation Summary 1) Normal left ventricular thickness, size, wall motion, and systolic function (EF 60-65%). 2) Normal right ventricular size and function. 3) Mild to moderate mitral regurgitation. 4) Injection of contrast documented no interatrial shunt. 5) Mild pulmonary hypertension present, estimated systolic pulmonary pressure of 44mmHg. 6) No prior Echo available for comparison. Reading Physician:11:17 AM Assessment & Plan 75-year-old female with diabetes type 2, hypertension, presented to the ER with complaint of shaking chills, fever, weakness. This is day 6. 1. Severe sepsis with source of pyelonephritis, present on admission, Resolved -Pt met Severe criteria with T 39.9, WBC 17.9, RR 22 and encephalopathy. Patient does still have elevated WBC -Lactic acid initially 2.8, now normal -IVF NS at 125ml/hr initially, now discontinued -Treated underlying condition -CBC daily with vital signs 2. Pyelonephritis, present on admission, resolving -CT abdomen showed a right perinephric fat stranding that could be "acute pyelonephritis as it was not apparent on most recent prior exam" consistent with her flank pain -LP performed in ER, did not demonstrate meningitis findings -CXR in ER reported as normal -Urine culture showed lyons-sensitive E.coli -Blood cultures x2 drawn in ER showed lyons-sensitive E.coli. Repeat blood cultures negative at 48 hours. -Patient was on Vanco, Zosyn then Ceftriaxone 2g daily. Will change to PO amoxicillin, 500mg Q 8 hours -Procalcitonin elevated at 17.16. Repeat 4.46. Will draw another for 09/07/16 -IVF NS now discontinued -Repeat UA ordered 09/06/16 3. Diabetes mellitus type 2, insulin using, present on admission, ongoing -Patient had elevated glucose of 526 on admission, and received insulin in the ER. -Diabetic diet ordered, hgbA1c 11.9 -Fasting still elevated. Adjusting again: Glargine 15 units HS. Lispro nutritional 5 units with meals. Medium dose correction scale. Will re-evaluate again tomorrow. -I have attempted daily to educate patient and family to keep the blood sugar under control. I have urged patient and family to demand more education through their PCP at [facility]. -NOTE: Patient's son does not understand how to use insulin and he is the caregiver. Could not figure out what she actually takes at home. Asked me if a blood sugar of 550 was okay. The nurse is looking for diabetic educational materials to be given to family. -Diabetic education ordered twice while inpatient. -Discharge with a good insulin plan and educate patient and family once again. I have attempted to explain. 4. Chronic constipation, present on admission, ongoing -Pt family reports history of constipation, and pt currently reports constipation. -Pt has prn Miralax, senna etc. Added Dulcolax suppository 5. Acute hyponatremia, present on admission, resolved -Likely dehydration -Resolved with IVF NS 6. Chronic pain treated with narcotic pain medication, present on admission, ongoing -Continued reported home dose of Vicodin. Patient states uses 1 pill daily about 5 days out of the week. 7. Chronic hyperlipidemia -Lipid panel normal 8. Hypertension -Pt had been hypotensive until today -Restarted losartan. >24 hours since possible TIA and discontinuing permissive hypertension. -Held HCTZ in the setting of infection 9. Altered Mental Status, Resolved - In retrospect, patient did not have a CVA On the morning of 09/04/16: - Symptoms present at 4:30 a.m. per nurse, but also patient was shaking hours earlier. Last seen at baseline was unclear. 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 The signs, if any, were mild and it was difficult to ascertain what signs were new, if any. Son did say her smile was different. - NIH stroke scale = 3 (but did have a prior CVA) - Brain CT without contrast showed no acute intracranial process and only mild atrophy and chronic microvascular ischemic changes. - MRI Angiogram stroke protocol showed no acute ischemia - Echocardiogram performed, see report above - Discontinued permissive hypertension after 24 hours Expect discharge to home on 09/07/16 PCP: Dr Subramanian( [facility]) Code: Full VTE Prophylaxis: Sub-Q Heparin (Unfractionated) VTE Mechanical Devices: Intermittant Pneumatic CD Resuscitation Status: CPR: Attempt Resuscitation Attending Statement The patient was seen and examined together with Dr. Sarkar on 09/06/2016 and I agree with the history, exam and plan as outlined in the note above. Shanti Sarkar DO Sep 06, 2016 15:30 Erik Gilliland MD Sep 07, 2016 12:56
--- NOTE | 2016-09-06 15:42 | NUR ---
Social Work-continued d/c planning: Data:EMR reviewed. Pt is on day 5 of hospitalization for Sepsis per H&P. Pt is not medically stable, anticipate 1-2 more days. PT and ST have both cleared pt for home with outpt Services. SW confirmed plan, home with family. Pt is now Medicaid pending. Pt has not completed DPOA paperwork, which has been provided. Pt's family to provide transport home. No anticipated discharge needs. SW will continue to follow if needs arise. Assessment:Pt who is independent at baseline. Plan:Pt to discharge home when medically stable via POV. No anticipated discharge needs. SW will continue to follow if needs arise. KATLYN Sinclair
--- NOTE | 2016-09-06 18:06 | NUR ---
Constipation Miralax and Senna administered, this AM No BM. Mineral oil enema administered as ordered by MD. Pt unable to pass stool. Pt reports left lower abdominal discomfort 10/10 on pain scale that "just started a short while ago". Frequent rounding in place, will continue to monitor.
--- NOTE | 2016-09-06 18:42 | NUR ---
HTN B/P = 177/72 following administration of 5 mg Labetalol IV push, notified, new orders received, Will continue to monitor.
[2016-09-06] MEDS ORDERED: Insulin GLARgine 100 Unit/mL Syringe SUBQ SCH (21:00)
[2016-09-06] MEDS: HYDROcodone-APAP 7.5-325 mg Tablet PO PRN (22:06)
[2016-09-07] MEDS: Sodium Chloride LOK Flush 10 mL Syringe IVFLUSH SCH ×2 (01:57→09:01)
[2016-09-07 02:08] VITALS: BP 154/72; PULSE 70; RESP 18; O2SAT 96
[2016-09-07 05:31] VITALS: BP 144/65; PULSE 65; RESP 18; O2SAT 96
--- NOTE | 2016-09-07 06:30 | NUR ---
BP/BM/Pain Pt complains of abdominal and back pain, administered tylenol PRN. No further complains after. BP has been trending down from 160's SBP to 140's SBP. Administered Dulcolax suppository due to pt complaining of not having any bowel movement for 3 weeks. Pt had a small bowel movement after intervention, witnessed by DANIELLA Singleton. Blood sugar checks and insulin administered per sliding scale. HS meds administered as scheduled. Pt has been afebrile overnight.
[2016-09-07 06:34] LABS: BASOPHILS % (AUTO) 0.5 % (0-3); MONOCYTES % (AUTO) 13.5 % (4-12); Mean Corpuscular Hemoglobin 34.2 pg (27.0-35.0); NEUTROPHILS % (AUTO) 38.3 % (40-74); Platelet Count 373 bil/L (150-400)
[2016-09-07 06:59] VITALS: PULSE 67
--- NOTE | 2016-09-07 08:30 | NUR ---
Social Work-readiness for discharge: Data:EMR reviewed. Pt is on day 6 of hospitalization for sepsis per H&P. Pt may be ready later today or tomorrow. PT and ST have cleared pt for home with outpt services. Pt to return home with her daughter, SW confirms plan. Pt's family to provide transport home. No discharge needs identified. SW will continue to follow if needs arise. Assessment:Pt who is independent at baseline. Plan:Pt to discharge home with family support when medically stable via POV. No discharge needs identified. SW will continue to follow if needs arise. KATLYN Sinclair
[2016-09-07] MEDS: Calcium Carbonate (Oyster Shell) 500 mg Tablet PO SCH (08:54)
[2016-09-07] MEDS: Heparin 5,000 Unit/mL Inj SUBQ SCH (08:56)
[2016-09-07] MEDS: Insulin LISPRO 300 Unit/3 mL Inj SUBQ SCH ×2 (08:57→11:56)
[2016-09-07 09:11] VITALS: PULSE 65
[2016-09-07 09:51] VITALS: BP 190/72; PULSE 64; RESP 18; O2SAT 96
[2016-09-07] MEDS ORDERED: INSU100V7 SUBQ (10:03)
[2016-09-07] MEDS ORDERED: INSLIS SUBQ (10:03)
[2016-09-07] MEDS: Polyethylene Glycol (PEG) 17 Gm Powder PO PRN (10:08)
[2016-09-07 10:13] VITALS: BP 178/79; PULSE 61; RESP 20
--- NOTE | 2016-09-07 11:32 | NUR ---
Social Work- discharge: Data:EMR reviewed. Pt is on day 6 of hospitalization for sepsis per H&P. Pt is ready to discharge today. PT and ST have cleared pt for home with outpt services. Pt to return home with her daughter.. Pt's family to provide transport home. No discharge needs identified. All updated and agreeable to plan. Assessment:Pt who is independent at baseline. Plan:Pt to discharge home with family support when medically stable via POV. No discharge needs identified. All updated and agreeable to plan. KATLYN Sinclair
[2016-09-07] MEDS ORDERED: INSU100V4 SUBQ (12:18)
[2016-09-07] MEDS ORDERED: AMOX500T2 PO (12:35)
[2016-09-07] MEDS ORDERED: HYDR12.5 PO (12:35)
--- NOTE | 2016-09-07 12:38 | PCM.DIMED ---
Tracey Evans DO 09/07/16 1212: Discharge Instructions Date of Service Sep 07, 2016 Dates of Hospitalization Sep 01, 2016 at 20:06 Discharge Diagnosis Discharge Diagnosis Acute severe sepsis, present on admission. Resolved. Acute pyelonephritis, present on admission. Resolving. Acute Escherichia coli, present on admission. Resolved. Acute encephalopathy, not present on admission. Resolved. Diabetes mellitus type 2, insulin using, present on admission. Stable. Chronic constipation, present on admission. Stable. Acute hyponatremia, present on admission. Resolved. Chronic pain with opiate habituation, present on admission. Stable. Hyperlipidemia, chronic. Stable. Hypertension, chronic. Stable. . Medication Instructions Please take all medications as instructed below New medications: Amoxicillin 500 mg 3 times a day (every 8 hours) 3 more days (start with this afternoon dose). Lispro subcutaneous based on sliding scale: Check blood sugars before meals and at bedtime. Use correction factor only before meals. Blood Sugar Lispro Correction: <151, 0 units; 151-175, 1 unit; 176-200, 2 units; 201-225, 3 units; 226-250, 4 units; 251-275, 5 units; 276-300, 6 units; 301-325, 7 units; 326-350, 8 units; 351-375, 9 units; 376-400, 10 units; >400, 12units. Continued medications: Aspirin 81 mg daily. Cyclobenzaprine 10 mg 3 times a day as needed for muscle spasm. Diclofenac 50 mg daily. Glipizide 10 mg daily. Losartan 25 mg daily. Metformin ER 1000 g twice a day. MiraLAX 17 g daily as needed for constipation. Senna 8.6 mg twice daily as needed for constipation. Discontinued medications: Lisinopril 5 mg daily. Changed medications: Levemir 11 units increased to 16 units subcutaneous daily at bedtime. Hydrochlorothiazide 12.5 mg increased to 25 mg daily. . Diet Low fat, Low Sodium, Heart Healthy, Diabetic Activity Limited until seen by PCP Call your provider Fever or Chills, Shortness of breath, Chest pain, Vomitting, Excessive diarrhea , Weakness (unilateral) Patient Instructions Follow-up plan Please follow-up with your primary care physician, Dr. Ally Subramanian, in the next 1 week regarding your recent hospitalization for pyelonephritis and Escherichia coli bacteremia and medication changes. Please finish your antibiotics as instructed above. Also please take all medications as prescribed. . Follow-up Provider: Ally Subramanian MD Follow-up with PCP in: 1 week Erik Gilliland MD 09/07/16 1257: Tracey Evans DO Sep 07, 2016 12:12 Erik Gilliland MD Sep 07, 2016 12:57
--- NOTE | 2016-09-07 14:00 | NUR ---
Discharge Nursing note: Patient was discharged to home at 1400. Her IV was discontinued intact. All of her discharge information was reviewed with her and her daughter who helps her at home. All information was printed in Setswana and Tuvaluan and interpreted for patient with assistance from her daughter . Insulin / Diabetic teaching was provided also and patient expressed her understanding of the information. Patient was brought to the hospital lobby in a w/c by nursing staff member and she was assisted into her car by nursing staff and daughter. And she was driven home by her granddaughter. Note: Patient has several supportive family members and information was provided for them to help with patients care.
--- NOTE | 2016-09-07 20:10 | PCM.DC.MED ---
Discharge Summary Date of Service Sep 07, 2016 Dates of Hospitalization Date of Hospital Admission Sep 01, 2016 at 20:06 Date of Discharge: Sep 07, 2016 Providers: Admitting Physician: Yelena Sales DO Primary Care Physician: Ally Subramanian MD Attending Physician: Yelena Sales DO Diagnosis at Time of Discharge Diagnosis at Time of Discharge Acute severe sepsis, present on admission. Resolved. Acute pyelonephritis, present on admission. Resolving. Acute Escherichia coli, present on admission. Resolved. Acute encephalopathy, not present on admission. Resolved. Diabetes mellitus type 2, insulin using, present on admission. Stable. Chronic constipation, present on admission. Stable. Acute hyponatremia, present on admission. Resolved. Chronic pain with opiate habituation, present on admission. Stable. Hyperlipidemia, chronic. Stable. Hypertension, chronic. Stable. . Procedures XRay, CTs & MRIs X-RAY CHEST ONE VIEW, PORTABLE IMPRESSION: 1. No acute cardiopulmonary disease. Dictated by: Walter Rodriguez M.D. on 09/01/2016 at 16:58 Approved by: Walter Rodriguez M.D. on 09/01/2016 at 16:59 CT ABDOMEN AND PELVIS WITH CONTRAST IMPRESSION: 1. Right perinephric fat stranding could reflect acute pyelonephritis as it was not apparent on most recent prior exam. No nephrolithiasis or hydronephrosis seen. 2. Appendix is nonvisualized. No bowel obstruction or inflammation evident. 3. Hepatic steatosis. Findings are concordant with the preliminary report Dictated by: Ferny Romero M.D. on 09/02/2016 at 8:29 Approved by: Ferny Romero M.D. on 09/02/2016 at 8:36 MRI STROKE PROTOCOL Pre- and post-contrast brain MRI, non-contrast brain MR angiogram, pre- and postcontrast neck MR angiogram IMPRESSION: 1. No acute intracranial process. No acute ischemia. 2. Mild atrophy and chronic microvascular ischemic changes. 3. No areas of hemodynamically significant stenosis, vascular occlusion or aneurysmal dilation within the anterior circulation. 4. No areas of hemodynamically significant stenosis, vascular occlusion or aneurysmal dilation within the posterior circulation. 5. Partially obscured evaluation of the vertebral artery origins particularly on the left secondary to tortuosity and motion. Underlying stenosis within this region cannot be excluded. Otherwise, no areas of hemodynamically significant stenosis, vascular occlusion or aneurysmal dilation within the neck vasculature. The estimate of stenosis included in the report of the imaging study was calculated using the NASCET method Dictated by: Sharron Erazo M.D. on 09/04/2016 at 11:03 Approved by: Sharron Erazo M.D. on 09/04/2016 at 11:17 CT BRAIN (TPA) IMPRESSION: 1. No acute intracranial process. 2. Mild atrophy and chronic microvascular ischemic changes. This study fulfills neurological imaging criteria for inclusion or exclusion of acute stroke therapies based on available published neurological guidelines. Dictated by: Sharron Erazo M.D. on 09/04/2016 at 10:55 Approved by: Sharron Erazo M.D. on 09/04/2016 at 10:56 . Cardiac Echo Impression Echocardiogram Interpretation Summary 1) Normal left ventricular thickness, size, wall motion, and systolic function (EF 60-65%). 2) Normal right ventricular size and function. 3) Mild to moderate mitral regurgitation. 4) Injection of contrast documented no interatrial shunt. 5) Mild pulmonary hypertension present, estimated systolic pulmonary pressure of 44mmHg. 6) No prior Echo available for comparison. Reading Physician:11:17 AM . Brief History Per Dr. Borrero's history of present illness on 09/01/2016: 75-year-old female presented to the ER with complaint of shaking chills , fever, weakness. History is obtained from the patient's granddaughter, as patient is very weak and tired. Patient's granddaughter reports that the patient was in her normal state of health 2 days ago. Granddaughter reports that yesterday the patient was complaining of weakness and feeling ill, and today was experiencing shaking chills fever some confusion and worsening weakness. Granddaughter reports that the patient's weakness was so severe that she was unable to walk and her sons had to carry her to the ER. Family reports that at baseline the patient uses a cane to walk and is independent of all her activities. Per family she lives with her 3 sons. Patient and family report that she has a history of constipation, and reports that she has had very few bowel movements over the past 2-3 weeks. Patient reports headaches, fatigue, weakness, fever, chills, nausea,vomiting ,constipation and myalgias. Patient denies chest pain, shortness of breath. She denies dysuria, hematuria or increased frequency of urination. Patient did report some CVA tenderness. While in the ER patient had a temperature of 39.9 pulse 86, respiratory rate 22 , blood pressure 160/67, pulse ox 91 on room air. Labs revealed white count 17.9 hemoglobin 11.9 hematocrit 34.0, neutrophils 85.8%. Glucose was 526 on admission, lactic acid was 2.8. Patient underwent lumbar puncture while in the ER, which was nontraumatic per the ER physician. . Hospital Course Berry Mcginnis is a 75-year-old female with diabetes type 2, hypertension, presented to the ER with complaint of shaking chills, fever, weakness and treated for acute severe sepsis, secondary to pyelonephritis and Escherichia coli bacteremia. 1. Acute severe sepsis, present on admission. Resolved. - SIRS criteria met include: T 39.9, WBC 17.9, RR 22 and encephalopathy. - Lactic acid initially 2.8 and normalized. - Early goal-directed therapy met including: IV fluid hydration and broad- spectrum antibiotics. - Treated underlying condition. 2. Acute pyelonephritis, present on admission. Resolving. - CT abdomen revealed right perinephric fat stranding could reflect acute pyelonephritis, as above. - LP performed in ER CSF fluid did not show any organisms on Gram stain and culture was negative. - Chest x-ray showed no acute cardiopulmonary process, as above. - Urine culture grew lyons-sensitive E.coli. - Blood cultures x2 drawn in ER showed lyons-sensitive E.coli. Repeat blood cultures negative at time of discharge. - Patient was given Vanco and Zosyn which was switched to Ceftriaxone 2g IV daily. Later swithed to PO antibiotic with amoxicillin 500mg every 8 hours. Patient was discharged with amoxicillin 500 mg every 8 hours 4 days. - Procalcitonin initially elevated at 17.16. Trended down. - Given IV fluid for resuscitation until adequately hydrated and taking in adequate by mouth fluids. 3. Acute Escherichia coli bacteremia, present on admission. Resolved. - See antibiotics given above. - Given IV fluid for resuscitation until adequately hydrated and taking in adequate by mouth fluids. 4. Acute encephalopathy, not present on admission. Resolved. - Patient initially had a code stroke called and it was thought to be possible TIA. In retrospect, patient did not have a CVA or TIA. On the morning of 09/04/16: - Symptoms present at 4:30 a.m. per nurse, but also patient was shaking hours earlier. Last seen at baseline was unclear. 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 The signs, if any, were mild and it was difficult to ascertain what signs were new, if any. Son did say her smile was different. - NIH score of 3, however, did have a history of a prior CVA. - Brain CT without contrast showed no acute intracranial process and only mild atrophy and chronic microvascular ischemic changes, as above. - MRI Angiogram stroke protocol showed no acute ischemia, as above. - Echocardiogram performed, see report above - Discontinued permissive hypertension after 24 hours. Chronic problems: 5. Diabetes mellitus type 2, insulin using, present on admission. Stable. - Hemoglobin A1c 11.9%. - Patient had elevated glucose of 526 on admission, and received regular insulin in the ER. - Continue carbohydrate consistent diet throughout hospitalization. - I have attempted daily to educate patient and family to keep the blood sugar under control. I have urged patient and family to demand more education through their PCP at [facility]. -NOTE: Patient's son does not understand how to use insulin and he is the caregiver. Could not figure out what she actually takes at home. Asked me if a blood sugar of 550 was okay. The nurse is looking for diabetic educational materials to be given to family. - Diabetic education given. - Discharged with a good insulin plan and educated patient and family once again. 6. Chronic constipation, present on admission. Stable. - Patient was given MiraLAX and senna as needed. Additional Dulcolax suppository was given. 7. Acute hyponatremia, present on admission. Resolved. - Secondary to prerenal azotemia and dehydration. - Resolved with IV fluid administration. 8. Chronic pain with opiate habituation, present on admission. Stable. - Continued reported home dose of Vicodin. Patient states uses 1 pill daily about 5 days out of the week. 9. Hyperlipidemia, chronic. Stable. - Lipid panel normal. 10. Hypertension, chronic. Stable. - Continued losartan 25 mg daily at time of discharge. - Increased HCTZ from 12.5 mg to 25 mg daily at time of discharge. . Exam Vital Signs (Last) Date Time Temp Pulse Resp B/P Pulse Ox O2 Delivery O2 Flow Rate FiO2 09/07/16 10:13 61 20 178/79 09/07/16 09:51 36.9 96 Room Air 09/02/16 13:07 3.00 Exam General: alert, oriented x3, cooperative, sitting in a chair, speaking clearly Eyes: scleral anicteric Mouth: mucous membranes moist/pink Neck: supple Chest & Lungs: clear to auscultation, no adventitious breath sounds, no crackles , no wheeze Cardiovascular: no murmurs/rubs/gallops, regular rate/rhythm Pulses: Radial (present and equal), Dorsalis Pedi (present and equal) Abdomen: distended and mildly firm, normoactive bowel tones Musculoskeletal: unremarkable, no swollen or erythematous joints Extremities: no edema, no calf tenderness Neuro: Left-sided weakness (residual from stroke and per family at baseline) . Test 09/01/16 17:30 09/01/16 21:15 09/02/16 02:00 09/02/16 06:32 CSF Appearance Clear (CLEAR) CSF Color Colorless (COLORLESS) CSF WBC 1/mm3 (0-5) CSF RBC 0/mm3 CSF Mononuclear WBCs % CSF Polynuclear WBCs % CSF Other Cells CSF Glucose 214mg/dL (45-90) CSF Total Protein 35mg/dL (15-45) Hemoglobin A1c 11.9% (4.8-5.6) Phosphorus Level 3.0mg/dL (2.5-4.9) Troponin T 0.010ug/L (0.0-0.011) Urine Color Yellow (YELLOW) Urine Appearance Hazy (CLEAR,HAZY) Urine pH 6.0 (5.0-8.0) Urine Specific Liberal 1.025 (1.003-1.035) Urine Protein Tracemg/dL (NEG,TRACE) Urine Glucose (UA) 500mg/dL (NEGATIVE) Urine Ketones Negativemg/dL (NEGATIVE) Urine Occult Blood Small (NEGATIVE) Urine Nitrite Positive (NEGATIVE) Urine Bilirubin Negative (NEGATIVE) Urine Urobilinogen Normalmg/dL (NORMAL) Urine Leukocyte Esterase Trace (NEGATIVE) Urine RBC 3-10/hpf (0-2) Urine WBC 11-50/hpf (0-5) Urine Epithelial Cells Few/hpf (NONE-MOD) Urine Crystals None seen (NONE SEEN) Urine Bacteria Moderate/hpf (NONE-FEW) Urine Hyaline Casts None/lpf (NONE) Urine Granular Casts None seen (NONE SEEN) Urine Waxy Casts None seen (NONE SEEN) Urine Red Blood Cell Casts None seen (NONE SEEN) Urine White Blood Cell Casts None seen (NONE SEEN) Urine Mucus None seen (None Seen) Urine Trichomonas None seen (NONE SEEN) Urine Yeast None (NONE SEEN) Urinalysis Comment None Urine Culture Reflexed Indicated Lactic Acid Level 1.5mmol/L (0.4-2.0) Test 09/02/16 09:00 09/03/16 06:45 09/04/16 07:19 09/07/16 05:50 Hold Castano Top Tube Received (Received) Triglycerides Level 181mg/dL (0-149) Cholesterol Level 149mg/dL (100-199) LDL Cholesterol, Calculated 86.800mg/dL (0-99) VLDL Cholesterol 36.200mg/dL HDL Cholesterol 26mg/dL (>39) Cholesterol/HDL Ratio 5.73 (0.0-4.4) Prothrombin Time 10.0sec (8.1-12.5) Prothromb Time International Ratio 0.94ratio Magnesium Level 1.9mg/dL (1.6-2.6) White Blood Count 11.4th/mm3 (3.8-10.1) Red Blood Count 3.04mil/mm3 (3.90-5.20) Hemoglobin 10.4g/dL (12.0-15.6) Hematocrit 30.4% (35.0-46.0) Mean Corpuscular Volume 100.0fL (81-100) Mean Corpuscular Hemoglobin 34.2pg (27.0-35.0) Mean Corpuscular Hemoglobin Concent 34.2% (32.0-37.0) Red Cell Distribution Width 13.3% (12.3-15.4) Platelet Count 373bil/L (150-400) Neutrophils (%) (Auto) 38.3% (40-74) Lymphocytes (%) (Auto) 43.1% (14-46) Monocytes (%) (Auto) 13.5% (4-12) Eosinophils (%) (Auto) 4.0% (0-5) Basophils (%) (Auto) 0.5% (0-3) Sodium Level 139mEq/L (134-144) Potassium Level 4.3mEq/L (3.5-5.2) Chloride Level 98mEq/L (97-108) Carbon Dioxide Level 25mmol/L (18-29) Blood Urea Nitrogen 8mg/dL (8-27) Creatinine 0.64mg/dL (0.57-1.00) Estimat Glomerular Filtration Rate 130mL/min (>59) Glucose Level 234mg/dL (60-99) Calcium Level 8.7mg/dL (8.5-10.1) Total Bilirubin 0.3mg/dL (0.0-1.2) Aspartate Amino Transf (AST/SGOT) 22U/L (0-50) Alanine Aminotransferase (ALT/SGPT) 26U/L (0-32) Alkaline Phosphatase 123U/L (25-165) Total Protein 5.8g/dL (6.4-8.4) Albumin 3.1g/dL (3.4-5.0) Procalcitonin 1.78ng/mL (0.00-0.08) Microbiology Results Microbiology 09/01/16 Gram Stain - Final, Resulted 09/01/16 Culture & Sensitivity - Preliminary, Resulted No growth to date 09/01/16 Adenovirus DNA (PCR) - Final, Complete Not Detected 09/01/16 Coronavirus 229E PCR - Final, Complete Not Detected 09/01/16 Coronavirus HKU1 PCR - Final, Complete Not Detected 09/01/16 Coronavirus NL63 PCR - Final, Complete Not Detected 09/01/16 Coronavirus OC43 PCR - Final, Complete Not Detected 09/01/16 Influenza Type A (PCR) - Final, Complete Not Detected 09/01/16 Influenza Type B (PCR) - Final, Complete Not Detected 09/01/16 Human Metapneumovirus (PCR) (RAH) - Final, Complete Not Detected 09/01/16 Rhinovirus (PCR)(RAH) - Final, Complete Not Detected 09/01/16 Parainfluenza Virus Type 1 (PCR) - Final, Complete Not Detected 09/01/16 Parainfluenza Virus Type 2 (PCR) - Final, Complete Not Detected 09/01/16 Parainfluenza Virus Type 3 (PCR) - Final, Complete Not Detected 09/01/16 Parainfluenza Virus Type 4 (NAAT) - Final, Complete Not Detected 09/01/16 Respiratory Syncytial Virus (PCR)LA - Final, Complete Not Detected 09/01/16 Chlamydia pneumoniae (PCR) - Final, Complete Not Detected 09/01/16 Mycoplasma pneumoniae DNA Detection - Final, Complete 09/02/16 Urine Culture, lyons-sensitive E. coli 09/01/16 blood culture = gram negative rods. 09/02/16 Repeat negative for 48 hours Discharge Medications Discharge Medications Amoxicillin (Amoxicillin) 500 Mg Tablet 500 MG PO TID Prescribed by: JOE ADAMS DO Aspirin (Aspirin) 81 Mg Tablet 81 MG PO DAILY (Reported) Glipizide (Glipizide) 10 Mg Tablet 10 MG PO DAILY (Reported) Hydrochlorothiazide (Hydrochlorothiazide) 12.5 Mg Capsule 25 MG PO DAILY Prescribed by: JOE ADAMS DO Insulin Detemir (Levemir U100 Insulin Vial) 100 Unit/1 Ml Vial 16 UNIT SUBQ HS Prescribed by: JOE ADAMS DO Insulin Human Lispro (HumaLOG U100 Insulin Vial) 100 Unit/Ml Unit 0 UNIT SUBQ WMHS Check blood sugars before meals and at bedtime. Use correction factor only before meals. Blood Sugar Lispro Correction:<151, 0units;151-175, 1unit;176-200 , 2units;201-225, 3units;226-250, 4units;251-275, 5units;276-300, 6units;301-325 , 7units;326-350, 8units;351-375, 9units;376-400, 10units;>400,12units. Prescribed by: JOE ADAMS DO Metformin ER (Metformin ER) 1,000 Mg Tablet 1,000 MG PO BID (Reported) As needed Cyclobenzaprine (Cyclobenzaprine) 10 Mg Tablet 10 MG PO TID PRN PRN Spasm ( Reported) Hydrocodone-Acetaminophen 7.5-325 mg (Hydrocodone-Acetaminophen 7.5-325 mg) 1 Each Tablet 1 TABLET PO HS PRN PRN For Pain (Reported) Polyethylene Glycol 3350 (Miralax) 17 Gm Powd.pack 17 GM PO DAILY PRN PRN For Constipation Prescribed by: SERENA RODRIGUEZ MD Sennosides (Senna) 8.6 Mg Tablet 8.6 MG PO BID PRN PRN For Constipation Prescribed by: SERENA RODRIGUEZ MD Miscellaneous Medications Diclofenac Potassium (Diclofenac Potassium) 50 Mg Tablet 50 MG PO (Reported) Losartan Potassium (Losartan Potassium) 25 Mg Tablet 25 MG PO (Reported) Additional med instructions Please take all medications as instructed below New medications: Amoxicillin 500 mg 3 times a day (every 8 hours) 3 more days (start with this afternoon dose). Lispro subcutaneous based on sliding scale: Check blood sugars before meals and at bedtime. Use correction factor only before meals. Blood Sugar Lispro Correction: <151, 0 units; 151-175, 1 unit; 176-200, 2 units; 201-225, 3 units; 226-250, 4 units; 251-275, 5 units; 276-300, 6 units; 301-325, 7 units; 326-350, 8 units; 351-375, 9 units; 376-400, 10 units; >400, 12units. Continued medications: Aspirin 81 mg daily. Cyclobenzaprine 10 mg 3 times a day as needed for muscle spasm. Diclofenac 50 mg daily. Glipizide 10 mg daily. Losartan 25 mg daily. Metformin ER 1000 g twice a day. MiraLAX 17 g daily as needed for constipation. Senna 8.6 mg twice daily as needed for constipation. Discontinued medications: Lisinopril 5 mg daily. Changed medications: Levemir 11 units increased to 16 units subcutaneous daily at bedtime. Hydrochlorothiazide 12.5 mg increased to 25 mg daily. . Followup Plan Disposition: Home. . Follow-up plan Please follow-up with your primary care physician, Dr. Ally Subramanian, in the next 1 week regarding your recent hospitalization for pyelonephritis and Escherichia coli bacteremia and medication changes. Please finish your antibiotics as instructed above. Also please take all medications as prescribed. . Discharge Diet: Low fat, Low Sodium, Heart Healthy, Diabetic Discharge Activity: Limited until seen by PCP Follow-up Provider: Ally Subramanian MD Follow-up with PCP in: 1 week Time spent 35 minutes Attending Statement The patient was seen and examined together with Dr. Adams on 09/07/2016 and I agree with the history, exam and plan as outlined in the note above. Joe Adams DO Sep 07, 2016 20:10 Erik Gilliland MD Sep 08, 2016 09:51
== END 2016-09-07 14:00 | disposition home or self-care (01) | DRG 871 ==
LOC: SED 15:34 → MPC 20:06
PROVIDERS: ADMIT Internal Medicine; ATTEND Internal Medicine
PROC: 009U3ZX Drainage of Spinal Canal, Percutaneous Approach, Diagnostic (ICD-10-PCS; principal; 2016-09-01)
PROC: 4A033R1 Measurement of Arterial Saturation, Peripheral, Percutaneous Approach (ICD-10-PCS; 2016-09-01)
DX: A41.9 Sepsis, unspecified organism (principal); G93.40 Encephalopathy, unspecified; E11.65 Type 2 diabetes mellitus with hyperglycemia; E11.40 Type 2 diabetes mellitus with diabetic neuropathy, unspecified; N10 Acute pyelonephritis; E87.1 Hypo-osmolality and hyponatremia; I69.354 Hemiplegia and hemiparesis following cerebral infarction affecting left non-dominant side; R65.20 Severe sepsis without septic shock; Z79.4 Long term (current) use of insulin; F32.9 Major depressive disorder, single episode, unspecified; F41.9 Anxiety disorder, unspecified; I10 Essential (primary) hypertension; E78.5 Hyperlipidemia, unspecified; K59.09 Other constipation; E83.42 Hypomagnesemia; G89.29 Other chronic pain; B96.20 Unspecified Escherichia coli [E. coli] as the cause of diseases classified elsewhere; R47.81 Slurred speech; R29.810 Facial weakness

== ENCOUNTER 2016-12-16 18:40 | Observation (INO) | payer MEDICAID ==
[~2016-12-16] VITALS: Ht 180.3 cm; Wt 69.9 kg
[~2016-12-16 18:40] MED LIST changes: +AMOX500T2 PO; +CYCL10TA9 PO; +DICL50TA5 PO; +GLIP10TA10 PO; +HYDR12.5 PO; +INSLIS SUBQ; -LISI-571 PO; +LOSA25TA21 PO
[2016-12-16 18:44] VITALS: BP 125/50; PULSE 66; RESP 16; O2SAT 98
--- NOTE | 2016-12-16 18:50 | ED.REPORT ---
HPI-Chest Pain 40 and Over Date of Service Dec 16, 2016 ED Provider: Fede Castillo MD Patient is a 76 year old female with a history of diabetes and hypertension who presents to the ED complaining of intermittent chest pressure onset 2200 last night. Associated symptoms include pain that radiates into her neck, dyspnea that she described as "not being able to catch her breath", palpitations and diaphoresis. Patient states that the pain lasted about 45 minutes and then she had another episode today. The patient went to the [facility] clinic yesterday and was told she has high blood pressure but she was unable to stay for further examination because her ride needed to leave. Nursing Notes Stated Complaint: CHEST PRESSURE, DIFFICULTY BREATHING Chief Complaint: Chest Pain Nursing Notes Reviewed: Yes Allergies: Coded Allergies: lisinopril (Verified Adverse Reaction, Intermediate, COUGH, 12/16/16) Scheduled Aspirin (Aspirin) 81 Mg Tablet 81 MG PO DAILY Diclofenac Potassium (Diclofenac Potassium) 50 Mg Tablet 50 MG PO DAILY Glipizide (Glipizide) 10 Mg Tablet 10 MG PO DAILY Hydrochlorothiazide (Hydrochlorothiazide) 12.5 Mg Capsule 25 MG PO DAILY Insulin Detemir (Levemir U100 Insulin Vial) 100 Unit/1 Ml Vial 16 UNIT SUBQ HS Insulin Human Lispro (HumaLOG U100 Insulin Vial) 100 Unit/Ml Unit 0 UNIT SUBQ WMHS Check blood sugars before meals and at bedtime. Use correction factor only before meals. Blood Sugar Lispro Correction:<151, 0units;151-175, 1unit;176-200 , 2units;201-225, 3units;226-250, 4units;251-275, 5units;276-300, 6units;301-325 , 7units;326-350, 8units;351-375, 9units;376-400, 10units;>400,12units. Metformin ER (Metformin ER) 1,000 Mg Tablet 1,000 MG PO BID Scheduled PRN Cyclobenzaprine (Cyclobenzaprine) 10 Mg Tablet 10 MG PO TID PRN PRN Spasm Hydrocodone-Acetaminophen 7.5-325 mg (Hydrocodone-Acetaminophen 7.5-325 mg) 1 Each Tablet 1 TABLET PO HS PRN PRN For Pain Polyethylene Glycol 3350 (Miralax) 17 Gm Powd.pack 17 GM PO DAILY PRN PRN For Constipation Sennosides (Senna) 8.6 Mg Tablet 8.6 MG PO BID PRN PRN For Constipation Miscellaneous Medications Losartan Potassium (Losartan Potassium) 25 Mg Tablet 25 MG PO General Time Seen by MD: 18:50 Chief Complaint Chest pressure Hx Obtained From: Patient, Daughter Arrived By: Walk-in Sudden in Onset?: Yes Onset Occurred: Yesterday Symptom Duration: Intermittent Location: : Chest left: Chest right Quality: Pressure Radiation: : Neck Associated with: Reports: Diaphoresis, Palpitations, Shortness of Breath Recent Healthcare: Recent doctor visit, Recent hospitalization Risk Factors HEART Score HEART for MACE: Mod index of susp (1), Normal ECG (0), Age 65 or over (2), 1-2 CAD risk factors (1) HEART for MACE Score: 4-7 (mod risk 12%-16.6%) Past Medical History Past Medical History Notes: Admitted 08/2015 for r/o sepsis, discharge dx gastroenteritis Past Medical History 1. Significant for type 2 diabetes mellitus, poorly controlled, positive history of diabetic gastroparesis, neuropathy 2. Depression and anxiety. 3. History of atypical chest pain with a negative stress echo in 2002. 4. Chronic sciatica (history of receiving 60 Vicodin a month) 5. 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 Reports: Diabetes mellitus, Hyperlipidemia, Hypertension Past Surgical History Reports: Tubal ligation Smoking History Never Smoker Social History Pt is Citizen Of [place]-speaking Drug Use: Denies drug use Other Social History: Good social support Ambulatory Status Independent Review of Systems Constitutional: Denies: Chills, Weakness - generalized Respiratory: Reports: Shortness of breath, Denies: Non-productive cough Cardiovascular: Reports: Chest pain, Palpitations Musculoskeletal: Reports: Neck pain, Denies: Extremity pain, Extremity swelling Skin: Reports Diaphoresis Neurologic: Denies: Dizziness Complete sys rev & neg: except as marked. Physical Exam Initial Vital Signs Vital Signs (First) Date Time Temp Pulse Resp B/P Pulse Ox O2 Delivery O2 Flow Rate FiO2 12/16/16 18:44 36.4 66 16 125/50 98 Room Air Initial VS: Reviewed General/Constitutional: Awake, Alert, No acute distress Respiratory / Chest: Atraumatic, Breath sounds NL, Breath sounds = bilat, No respiratory distress Cardiovascular: Heart rate NL, Regular rhythm, Heart sounds NL Abdomen: Atraumatic, Soft, Non-tender Neck: Atraumatic, Supple Lower Extremity / Pelvis / MS: Atraumatic, Full range of motion Skin: Atraumatic, Color NL, No rash, Warm, Dry Neurologic: Oriented X3, Speech NL, No motor deficits, No sensory deficits Psychiatric: Affect NL, Mood NL Head / Eyes: Atraumatic, Normocephalic, PERRL, EOMI Upper Extremity / MS: Atraumatic, Full range of motion Interpretation & Diagnostics Lab Results Interpretation Result Diagram: 12/16/165 12/16/165 Test 12/16/16 18:55 White Blood Count 10.3th/mm3 (3.8-10.1) Red Blood Count 3.17mil/mm3 (3.90-5.20) Hemoglobin 10.2g/dL (12.0-15.6) Hematocrit 30.9% (35.0-46.0) Mean Corpuscular Volume 97.5fL (81-100) Mean Corpuscular Hemoglobin 32.2pg (27.0-35.0) Mean Corpuscular Hemoglobin Concent 33.0% (32.0-37.0) Red Cell Distribution Width 14.1% (12.3-15.4) Platelet Count 373bil/L (150-400) Neutrophils (%) (Auto) 43.5% (40-74) Lymphocytes (%) (Auto) 43.7% (14-46) Monocytes (%) (Auto) 8.1% (4-12) Eosinophils (%) (Auto) 4.2% (0-5) Basophils (%) (Auto) 0.3% (0-3) D-Dimer < 0.50mg/L FEU (<0.50) Sodium Level 138mEq/L (134-144) Potassium Level 4.9mEq/L (3.5-5.2) Chloride Level 104mEq/L (97-108) Carbon Dioxide Level 23mmol/L (18-29) Blood Urea Nitrogen 28mg/dL (8-27) Creatinine 0.75mg/dL (0.57-1.00) Estimat Glomerular Filtration Rate 108mL/min (>59) Glucose Level 190mg/dL (60-99) Calcium Level 8.9mg/dL (8.5-10.1) Magnesium Level 1.8mg/dL (1.6-2.6) Total Bilirubin 0.3mg/dL (0.0-1.2) Aspartate Amino Transf (AST/SGOT) 26U/L (0-50) Alanine Aminotransferase (ALT/SGPT) 21U/L (0-32) Alkaline Phosphatase 77U/L (25-165) Troponin T < 0.010ug/L (0.0-0.011) Total Protein 6.6g/dL (6.4-8.4) Albumin 3.5g/dL (3.4-5.0) Hold Castano Top Tube Received (Received) ECG Interpretation Time: 19:01 Interpreted by: ED physician Normal ECG Interpretation: Normal rate (66), Normal sinus rhythm X-Ray Chest Interpretation Chest Xray Interpretation: IMPRESSION: No acute cardiopulmonary disease. Dictated by: Pedro Davis M.D. on 12/16/2016 at 19:31 Approved by: Pedro Davis M.D. on 12/16/2016 at 19:32 View: Portable, 1 view Interpretation / Wet Read by: Interpret - Radiologist Re-Eval/Medical Decision Med Decision/Clinical Course Heart score: 6 D - Dimer was less than .5, patient is low risk for PE therefore CT was not necessary. Patient with relatively new onset anginal type symptoms. Multiple cardiac risk factors. Heart score of 6. Last stress test 2008. Will admit for serial enzymes and definitive/provocative testing. Source of Hx: Old records Time of Eval: 19:40 Re-Evaluation/Progress Note: Discussed plan for admit during initial interview. The patient understands and agrees to the plan for admit. All questions were addressed. 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 I, Dr. Castillo personally performed the history, physical exam and medical decision-making; I reviewed and confirmed the accuracy of the information in the transcribed note. Signed by: Odin Saldana, 12/16/16 and 2007 copies to: Ally Subramanian MD, Todd P DO Dec 16, 2016 18:50 Marilu Coulter Dec 16, 2016 19:08
[2016-12-16 19:10] LABS: BASOPHILS % (AUTO) 0.3 % (0-3); EOSINOPHILS % (AUTO) 4.2 % (0-5); MONOCYTES % (AUTO) 8.1 % (4-12); Mean Corpuscular Hemoglobin 32.2 pg (27.0-35.0); Mean Corpuscular Volume 97.5 fL (81-100); NEUTROPHILS % (AUTO) 43.5 % (40-74); Platelet Count 373 bil/L (150-400)
[2016-12-16 19:27] LABS: TROPONIN T < 0.010 ug/L (0.0-0.011)
--- NOTE | 2016-12-16 19:33 | DRSVH ---
PROCEDURE: X-RAY CHEST ONE VIEW, PORTABLE ([id number]) INDICATIONS: chest pain TECHNIQUE: One view of the chest was acquired. COMPARISON: [facility], CR, XR CHEST 1VW (PORTABLE), 09/01/2016, 16:28. FINDINGS: Surgical changes and devices: None. Lungs and pleura: No pleural effusions or pneumothorax. Lungs are clear. Mediastinum: Mediastinal contours appear normal. Heart size is normal. Bones and chest wall: No suspicious bony lesions. Overlying soft tissues appear unremarkable. IMPRESSION: No acute cardiopulmonary disease. Dictated by: Pedro Davis M.D. on 12/16/2016 at 19:31 Approved by: Pdero Davis M.D. on 12/16/2016 at 19:32
[2016-12-16 19:37] LABS: Magnesium 1.8 mg/dL (1.6-2.6)
[2016-12-16] MEDS ORDERED: Nitroglycerin 2% 1 Gm Ointment TOPICAL ONE (19:45)
[2016-12-16 21:08] VITALS: BP 129/59; PULSE 71; RESP 15; O2SAT 99
[2016-12-16] MEDS ORDERED: Alum-Mag Hydrox-Simeth 30 mL Suspension PO PRN (21:10)
[2016-12-16] MEDS ORDERED: Ondansetron 2 mg/mL 2 mL Inj IVPUSH PRN (21:10)
[2016-12-16] MEDS ORDERED: Polyethylene Glycol (PEG) 17 Gm Powder PO PRN (21:10)
--- NOTE | 2016-12-16 21:40 | PCM.HPMED ---
Subjective Date of Service Dec 16, 2016 Primary Provider: Admitting Physician: Saúl Germain MD Primary Care Physician: Ally Subramanian MD Attending Physician: Saúl Germain MD Admit Status: From the Emergency Department Chief Complaint: Chest Pain History of Present Illness: Ms. Smart is a 76-year-old female past history of diabetes mellitus type II and hypertension who presented to the ED secondary to intermittent chest pain 1 day. Patient is [place]ian-speaking only. Associated symptoms included pain that radiated to her neck, shortness of breath "not being able to catch her breath" palpitations and diaphoresis as well as a pressure type pain "like a rug is laying on my chest". She has had 2 episodes of chest pain 1-2 days ago lasting 45 minutes and another today lasting approximately 30 minutes. She was seen at the [facility] clinic yesterday was told she had hypertension however she was unable to stay for further examination secondary to transportation needs. At time of interview patient's daughter and patient's 3 sons who are Moh[place]- speaking also present in room they confirm events leading up to hospitalization. At time of interview patient denies any chest pain or shortness of breath or feelings of pressure. She denies sick contacts at home, fever or chills, headaches or abdominal pain changes in GI or function. She does state decreased visual acuity which is chronic in nature as well as a left lower extremity pain beginning in her lumbar radiating down to her left calf which is also chronic in nature due to a sciatica. In the emergency room EKG did not show any ST changes or T-wave inversion. Initial troponin negative. Vital signs stable with the exception of a low diastolic pressure. D-dimer negative. Review of Systems: A comprehensive review of systems was conducted with the patient and found to be negative except as above in the history of present illness. Allergies Coded Allergies: lisinopril (Verified Adverse Reaction, Intermediate, COUGH, 12/16/16) Home Medications Amoxicillin (Amoxicillin) 500 Mg Tablet 500 MG PO TID Aspirin (Aspirin) 81 Mg Tablet 81 MG PO DAILY Glipizide (Glipizide) 10 Mg Tablet 10 MG PO DAILY Hydrochlorothiazide (Hydrochlorothiazide) 12.5 Mg Capsule 25 MG PO DAILY Insulin Detemir (Levemir U100 Insulin Vial) 100 Unit/1 Ml Vial 16 UNIT SUBQ HS Insulin Human Lispro (HumaLOG U100 Insulin Vial) 100 Unit/Ml Unit 0 UNIT SUBQ WMHS Check blood sugars before meals and at bedtime. Use correction factor only before meals. Blood Sugar Lispro Correction:<151, 0units;151-175, 1unit;176-200 , 2units;201-225, 3units;226-250, 4units;251-275, 5units;276-300, 6units;301-325 , 7units;326-350, 8units;351-375, 9units;376-400, 10units;>400,12units. Metformin ER (Metformin ER) 1,000 Mg Tablet 1,000 MG PO BID Cyclobenzaprine (Cyclobenzaprine) 10 Mg Tablet 10 MG PO TID PRN PRN Spasm Hydrocodone-Acetaminophen 7.5-325 mg (Hydrocodone-Acetaminophen 7.5-325 mg) 1 Each Tablet 1 TABLET PO HS PRN PRN For Pain Polyethylene Glycol 3350 (Miralax) 17 Gm Powd.pack 17 GM PO DAILY PRN PRN For Constipation Sennosides (Senna) 8.6 Mg Tablet 8.6 MG PO BID PRN PRN For Constipation PMH 1. Significant for type 2 diabetes mellitus, poorly controlled, positive history of diabetic gastroparesis, neuropathy 2. Depression and anxiety. 3. History of atypical chest pain with a negative stress echo in 2002. 4. Chronic sciatica (history of receiving 60 Vicodin a month) 5. 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 Is unable to describe any medical problems that run in the family." Social History Hx Alcohol Use: No Hx Substance Use: No Hx Tobacco Use: No Smoking Status: Never Smoker Exam Vital Signs Vital Sign - Last Date Time Temp Pulse Resp B/P Pulse Ox O2 Delivery O2 Flow Rate FiO2 12/16/16 21:08 71 15 129/59 99 Room Air 12/16/16 18:44 36.4 Exam General: Lying in hospital bed in no acute distress, well-developed, well- nourished, appropriately interactive. [place]ian-speaking only HEENT: Normocephalic, atraumatic. External ears without defect. Right pupil appears dilated slow to react. Anicteric sclerae, moist conjunctivae, and no lid lag. Oropharynx free of erythema and cobble stoning with moist mucosa. Unable to visualize tonsils Neck: Supple with full range of motion. No jugular venous distension. No bruits. No lymphadenopathy or thyromegaly. Cardiovascular: Regular rate and rhythm with no murmurs, rubs, or gallops appreciated Pulmonary: Clear to auscultation bilaterally with no crackles, wheezes, or rhonchi. Normal respiratory effort with no use of accessory muscles. Chest: Pain to palpation to sternal area as well as ribs both anterior and posterior Abdomen: Bowel tones present. Soft, nontender, nondistended. Extremities: No clubbing, cyanosis, edema, or lymphadenopathy appreciated. . Skin: Normal temperature, turgor, and texture Neurological: Cranial nerves grossly intact Lab and Diagnostics Result Diagram: 12/16/16185412/16/161854 X-Rays, CTs and MRIs . X-RAY CHEST ONE VIEW, PORTABLE IMPRESSION: No acute cardiopulmonary disease. Dictated by: Pedro Davis M.D. on 12/16/2016 at 19:31 12-lead ECG Normal rate (66), Normal sinus rhythm. No ST changes or T wave inversions Assessment & Plan Ms. Smart is a 76-year-old female past history of diabetes mellitus type II admitted to the hospital secondary to intermittent chest pain 1 day. Chest pain. Present on admission. Resolved - EKG shows no evidence of [place] - Initial troponin negative, continue to trend - Stress test ordered - Telemetry - Nothing by mouth - Continue to monitor Hypertension. Chronic. Present on admission. Ongoing - Held home hydrochlorothiazide secondary to low diastolic pressure - Hold home losartan, awaiting finalization of med rec - Continue to monitor Diabetes mellitus type II. Chronic. Present on admission. Ongoing - Correctional scale - A1c pending Chronic sciatic pain. Present on admission. Ongoing - Continue home [place] 7.5 /325 HS - Continue home cyclobenzaprine Patient status: Patient admitted under observational status, awaiting stress test. Pain Evaluation: Adequate Pain Control GI Prophylaxis: H2 shante VTE Prophylaxis: Sub-Q Heparin (Unfractionated) Resuscitation Status: CPR: Attempt Resuscitation Attending Statement The patient was seen and examined together with Dr. Felix on 12/16 and I agree with the history, exam and plan as outlined in the note above. TALON FELIX DO Dec 16, 2016 21:40 Saúl Germain MD Dec 17, 2016 00:50
[2016-12-16 21:47] VITALS: BP 138/54; PULSE 69; RESP 20; O2SAT 96
[2016-12-16 22:04] VITALS: PULSE 69
--- NOTE | 2016-12-16 23:09 | NUR ---
Med List Patient unsure of doses of medication. Verified [facility] as pharmacy that is used. Patient's son reported that he will bring in medication bottles in the morning. Med rec not completed at time of admit.
--- NOTE | 2016-12-16 23:10 | NUR ---
Admit Patient admitted to room 3019 at 2140, accompanied by family. Trinidadian speaking, family assisted with translation. Denies pain. Telemetry connected, IV site patent. Oriented to room, call light, plan of care, policies, intentional rounding. White board updated. Family to stay overnight with patient.
[2016-12-17 00:30] LABS: BASOPHILS % (AUTO) 0.6 % (0-3); EOSINOPHILS % (AUTO) 4.8 % (0-5); Mean Corpuscular Hemoglobin 32.5 pg (27.0-35.0); Mean Corpuscular Volume 98.4 fL (81-100); NEUTROPHILS % (AUTO) 38.4 % (40-74); Platelet Count 371 bil/L (150-400)
[2016-12-17] MEDS ORDERED: HYDROcodone-APAP 7.5-325 mg Tablet PO PRN (00:30)
[2016-12-17] MEDS ORDERED: Polyethylene Glycol (PEG) 17 Gm Powder PO PRN (00:30)
[2016-12-17] MEDS ORDERED: Dextrose 10% 250 ML IV PRN (00:35)
[2016-12-17] MEDS ORDERED: Glucose 40% Oral Gel 15 Gm Tube PO PRN (00:35)
[2016-12-17 01:11] VITALS: BP 111/56; PULSE 66; RESP 16; O2SAT 97
[2016-12-17 01:20] LABS: Magnesium 1.8 mg/dL (1.6-2.6)
[2016-12-17 04:16] VITALS: BP 151/70; PULSE 64; RESP 18; O2SAT 96
[2016-12-17 04:45] VITALS: PULSE 66
[2016-12-17 05:11] LABS: APPEARANCE,URINE CLEAR (CLEAR,HAZY); COLOR,URINE YELLOW (YELLOW); OCCULT BLOOD,URINE NEGATIVE (NEGATIVE); PH,URINE 5.5 (5.0-8.0); UROBILINOGEN,URINE NORMAL (NORMAL)
[2016-12-17] MEDS: Insulin LISPRO 300 Unit/3 mL Inj SUBQ SCH ×2 (07:52→12:15)
[2016-12-17] MEDS ORDERED: Heparin 5,000 Unit/mL Inj SUBQ SCH (08:30)
[2016-12-17 08:46] VITALS: BP 118/65; PULSE 64; RESP 18; O2SAT 97
[2016-12-17] MEDS ORDERED: PRAV10TA2 PO (11:07)
[2016-12-17] MEDS ORDERED: INSU100V4 SUBQ (11:07)
[2016-12-17 11:26] VITALS: PULSE 66
--- NOTE | 2016-12-17 11:58 | NUR ---
EKG Cook paged Dr. Barrett and new orders to give Nitro and Stat EKG. Dr. Barrett came to bed side and assessed the patient stating," left shoulder pain" New orders for BP medication for BP 152/70, pulse 62. EKG done and results with Dr. Barrett," normal Sinus rhythm. Notified that Kendal from Stress test at bed side and stating if nitro is given then will be delayed in the stress test. Notified Dr. Barrett and orders not to give nitro. Machinist Wood also at bed side and ok for stress test now. patient will be going for stress test in 30 minutes after contrast injection by Kendal from stress test. Senior Research Associate at bed side and family at bed side as well.
--- NOTE | 2016-12-17 12:19 | NUR ---
Verbal orders to cancel nitro Verbal orders received to cancel nitro stat orders scheduled for 1136. Mechanic Foreman in room at bed side and states," patient says no pain."
--- NOTE | 2016-12-17 13:23 | NUR ---
CT patient off to CT and will be there for about 2 hours per cT.
--- NOTE | 2016-12-17 14:50 | NUR ---
Social Work-initial assessment/readiness for discharge: Data:See initial assessment. Pt is a 76 y/o female who was admitted on 12/16/16 for chest pain resolved per H&P. Pt is not medically stable anticipate later today or tomorrow. RAYNE met with pt and family to discuss discharge planning, SW role explained. Pt resides at home with son where she remains independent with ADLS. Pt does not use any DME and drives. Pt has no HH or SNF history. Pt has no shelter care insurance or VA benefits. SW discussed DPOA/ advanced directive, family denies they have completed this and declines any resources. Per RN notes, pt has been up independent in her room.Pt's family to provide transport home today. SW provided phone number and plan on white board. No anticipated discharge needs. SW will continue to follow if needs arise. Assessment:Pt who is independent at baseline. Plan:Pt to discharge home when medically stable via POV. No anticipated discharge needs. RAYNE will continue to follow if needs arise. KATLYN Sinclair Addendum: 12/17/16 at 1458 by DAVON ACEVES Amended: Links added.
--- NOTE | 2016-12-17 15:14 | DRSVH ---
PROCEDURE: 1 DAY PHARMACOLOGICAL STRESS TEST Rest and pharmacological stress myocardial perfusion SPECT with gated imaging and ejection fraction RADIOPHARMACEUTICAL: 8.4 mCi Tc-99m tetrafosmin IV at rest and 24.2 mCi Tc-99m tetrafosmin IV at peak effect of pharmacological stress. A [id number] was performed. INDICATIONS: 76 year-old woman with chest pain. Patient has hypertension and diabetes. Evaluate myoc ardial ischemia. TECHNIQUE: Radiopharmaceutical was injected at peak stress test, and also at rest. SPECT images wer e obtained. SPECT myocardial perfusion images were displayed in short axis, horizontal long axis, an d vertical long axis views. Gated images were reviewed using AutoQUANT software. COMPARISON: [facility], [place], [facility]ON PERF SPECT MULTI ([facility]), 02/08/2009, 12:31. CARDIAC STRESS: A pharmacologic stress test was performed under the supervision of an attending staff, using an infus ion of Lexiscan. Hemodynamic data: There is normal blood pressure and heart rate response to pharmacologic stress. Symptoms: The patient denied anginal chest pain. Aminophylline: 100 mg IV EKG: No diagnostic changes of ischemia; no ectopy. FINDINGS: Raw data: There is good myocardial uptake of radiotracer. No significant motion artifacts. Left ventricle function: Gated images demonstrate normal left ventricular wall thickening. No segme ntal wall motion abnormalities. No transient ischemic dilation. Left ventricle resting end diastoli c volume is normal. Left ventricle stress ejection fraction is greater than 10%; normal range is abo ve 45%. Myocardial perfusion: There is normal distribution of activity in the right and left ventricular jhon cardium. No fixed or reversible perfusion defects. Comparison to prior examinations: Compared to the last admission on 02/08/2009, there is no significan t change. IMPRESSION: 1. Normal myocardial perfusion images. 2. Normal left ventricular volume and systolic function. 3. No chest pain or diagnostic EKG changes for ischemia. PQRS ATTESTATIONS: Measure 322 - Is this imaging test primarily performed on a low-risk surgery patient for preoperative evaluation within 30 days preceding their low-risk non-cardiac surgery? Low-risk surgery is defined as cardiac or myocardial infarction less than 1%, including (but not limited to) endoscopic pr ocedures, superficial procedures, cataract surgery, and excisional breast surgery: Answer: No Measure 323 - Is this imaging test performed primarily for the monitoring of an asymptomatic patient who had percutaneous coronary intervention on the visit date or within 2 years of the visit date? An swer: No Measure 324 - Is this imaging test performed primarily for the initial detection and risk assessment on an asymptomatic, low coronary heart disease patient? Low CHD risk definition = clinicians should consider the maximum number of available patient factors used to estimate risk based on [place] (A TP III criteria), typically age, gender, diabetes, smoking status, and use of blood pressure medicati on, and integrate age appropriate estimates for missing elements, such as LDL or standard blood press ure. Answer: No Dictated by: Pedro Davis M.D. on 12/17/2016 at 15:09 Approved by: Pedro Davis M.D. on 12/17/2016 at 15:12
--- NOTE | 2016-12-17 15:44 | PCM.DIMED ---
Discharge Instructions Date of Service Dec 17, 2016 Dates of Hospitalization Dec 16, 2016 at 21:08 Discharge Diagnosis Discharge Diagnosis Chest pain/left shoulder pain noncardiac likely musculoskeletal Test Results Test Results Stress test read is low risk with good ejection fraction Diet Discharge Diet: Heart Healthy, Diabetic Activity Discharge Activity: No restrictions Call your provider Call your provider for: Shortness of breath, Chest pain Patient Instructions Follow-up plan See primary care provider if shoulder pain and symptoms are ongoing and may need an x-ray of the shoulder and some physical therapy. Follow-up Provider: Ally Subramanian MD Follow-up with PCP in: Other (call, if shoulder and arm pain is gone perhaps not at all otherwise with her regarding the pain) Attending's Statement Imaging and cardiac workup all normal Arnold Wang MD Dec 17, 2016 15:43
--- NOTE | 2016-12-17 16:08 | PCM.DC.MED ---
Discharge Summary Date of Service Dec 17, 2016 Dates of Hospitalization Date of Hospital Admission Dec 16, 2016 at 21:08 Date of Discharge: Dec 17, 2016 Providers: Admitting Physician: Saúl Germain MD Primary Care Physician: Ally Subramanian MD Attending Physician: Saúl Germain MD Diagnosis at Time of Discharge Diagnosis at Time of Discharge Chest pain/left shoulder pain noncardiac likely musculoskeletal Consultations None Procedures XRay, CTs & MRIs . X-RAY CHEST ONE VIEW, PORTABLE IMPRESSION: No acute cardiopulmonary disease. Dictated by: Pedro Davis M.D. on 12/16/2016 at 19:31 ECG 12 Lead Normal rate (66), Normal sinus rhythm. No ST changes or T wave inversions Cardiac Echo Impression Echocardiogram Report: Kelvin Garibay on 09/05/2016 1) Normal left ventricular thickness, size, wall motion, and systolic function (EF 60-65%). 2) Normal right ventricular size and function. 3) Mild to moderate mitral regurgitation. 4) Injection of contrast documented no interatrial shunt. 5) Mild pulmonary hypertension present, estimated systolic pulmonary pressure of 44mmHg. Reading Physician:11:17 AM Other Diagnostics NM, [facility] PERF SPECT MULT: Pedro Davis M.D. on 12/17/2016 at 15:12 1. Normal myocardial perfusion images. 2. Normal left ventricular volume and systolic function. 3. No chest pain or diagnostic EKG changes for ischemia. Dictated by: Pedro Davis M.D. on 12/17/2016 at 15:09 Approved by: Pedro Davis M.D. on 12/17/2016 at 15:12 Brief History 76-year-old female past history of diabetes mellitus type II and hypertension who presented to the ED secondary to intermittent chest pain 1 day. Patient is Burkinan-speaking only. Associated symptoms included pain that radiated to her neck, shortness of breath "not being able to catch her breath" palpitations and diaphoresis as well as a pressure type pain "like a rug is laying on my chest". She has had 2 episodes of chest pain 1-2 days ago lasting 45 minutes and another today lasting approximately 30 minutes. She was seen at the [facility] clinic yesterday was told she had hypertension however she was unable to stay for further examination secondary to transportation needs. At time of interview patient's daughter and patient's 3 sons who are Uzbek-speaking also present in room they confirm events leading up to hospitalization. At time of interview patient denies any chest pain or shortness of breath or feelings of pressure. She denies sick contacts at home, fever or chills, headaches or abdominal pain changes in GI or function. She does state decreased visual acuity which is chronic in nature as well as a left lower extremity pain beginning in her lumbar radiating down to her left calf which is also chronic in nature due to a sciatica. In the emergency room EKG did not show any ST changes or T-wave inversion. Initial troponin negative. Vital signs stable with the exception of a low diastolic pressure. D-dimer negative. Hospital Course 76-year-old female past history of diabetes mellitus type II admitted to the hospital secondary to intermittent chest pain 1 day. 12/17 serial enzymes normal, blood pressure came back under control it is labile, pulse is been in the 60s. Patient could benefit from some physical therapy, I suggested she utilized some ibuprofen/Naprosyn (judiciously with concern for stomach bleeding/kidney issues) and ice for her shoulder in addition to the [place] and cyclobenzaprine she has already prescribed. Chest pain. Present on admission. Resolved - EKG shows no evidence of HI - Initial troponin negative, continue to trend - Stress test ordered - Telemetry - Nothing by mouth - Continue to monitor Hypertension. Chronic. Present on admission. Ongoing - Held home hydrochlorothiazide secondary to low diastolic pressure - Hold home losartan, awaiting finalization of med rec - Continue to monitor Diabetes mellitus type II. Chronic. Present on admission. Ongoing blood sugars 190-220 that we have checked even while the patient was nothing by mouth. Suggest uncontrolled - Correctional scale - A1c pending at time of discharge Chronic sciatic pain. Present on admission. Ongoing Chronic left shoulder pain - Continue home [place] 7.5 /325 HS - Continue home cyclobenzaprine Patient status: Patient admitted under observational status, awaiting stress test. Exam Vital Signs (Last) Date Time Temp Pulse Resp B/P Pulse Ox O2 Delivery O2 Flow Rate FiO2 12/17/16 11:26 66 12/17/16 08:46 36.7 18 118/65 97 Room Air Exam Gen.- A+ O 3 no apparent distress. Thin female lying in bed Eyes- open conjunctiva clear, pupils equal nonicteric ENT- ears normal, nose normal Neck- supple/trach midline CVS- RRR no murmur or gallop Lungs regular and nonlabored normal rate, CTA no wheezes or rhonchi GI-flat Musc- moving 4 no obvious deformity ++ tenderness anterior insertion of biceps tendon full range of motion active and passive Neuro- cranial nerves II through XII intact to gross examination, nonfocal Skin- warm and dry, no rashes/lesions/wounds noted Psych- pleasant and appropriate, Test 12/16/16 18:55 12/16/16 21:14 12/17/16 00:15 12/17/16 03:00 D-Dimer < 0.50mg/L FEU (<0.50) Hold Castano Top Tube Received (Received) Hold Urine Received (Received) White Blood Count 8.9th/mm3 (3.8-10.1) Red Blood Count 3.08mil/mm3 (3.90-5.20) Hemoglobin 10.0g/dL (12.0-15.6) Hematocrit 30.3% (35.0-46.0) Mean Corpuscular Volume 98.4fL (81-100) Mean Corpuscular Hemoglobin 32.5pg (27.0-35.0) Mean Corpuscular Hemoglobin Concent 33.0% (32.0-37.0) Red Cell Distribution Width 14.1% (12.3-15.4) Platelet Count 371bil/L (150-400) Neutrophils (%) (Auto) 38.4% (40-74) Lymphocytes (%) (Auto) 47.1% (14-46) Monocytes (%) (Auto) 9.0% (4-12) Eosinophils (%) (Auto) 4.8% (0-5) Basophils (%) (Auto) 0.6% (0-3) Sodium Level 136mEq/L (134-144) Potassium Level 5.1mEq/L (3.5-5.2) Chloride Level 100mEq/L (97-108) Carbon Dioxide Level 20mmol/L (18-29) Blood Urea Nitrogen 24mg/dL (8-27) Creatinine 0.64mg/dL (0.57-1.00) Estimat Glomerular Filtration Rate 130mL/min (>59) Glucose Level 217mg/dL (60-99) Calcium Level 9.3mg/dL (8.5-10.1) Magnesium Level 1.8mg/dL (1.6-2.6) Total Bilirubin 0.3mg/dL (0.0-1.2) Aspartate Amino Transf (AST/SGOT) 25U/L (0-50) Alanine Aminotransferase (ALT/SGPT) 18U/L (0-32) Alkaline Phosphatase 73U/L (25-165) Total Protein 6.2g/dL (6.4-8.4) Albumin 3.7g/dL (3.4-5.0) Lipase 20U/L (13-60) Procalcitonin 0.05ng/mL (0.00-0.08) Thyroid Stimulating Hormone (TSH) 4.930uIU/mL (0.450-4.500) Urine Color Yellow (YELLOW) Urine Appearance Clear (CLEAR,HAZY) Urine pH 5.5 (5.0-8.0) Urine Specific [place] <1.005 (1.003-1.035) Urine Protein Negativemg/dL (NEG,TRACE) Urine Glucose (UA) Negativemg/dL (NEGATIVE) Urine Ketones Negativemg/dL (NEGATIVE) Urine Occult Blood Negative (NEGATIVE) Urine Nitrite Negative (NEGATIVE) Urine Bilirubin Negative (NEGATIVE) Urine Urobilinogen Normalmg/dL (NORMAL) Urine Leukocyte Esterase Negative (NEGATIVE) Urine RBC 0-2/hpf (0-2) Urine WBC 0-5/hpf (0-5) Urine Epithelial Cells Few/hpf (NONE-MOD) Urine Crystals None seen (NONE SEEN) Urine Bacteria Few/hpf (NONE-FEW) Urine Hyaline Casts None/lpf (NONE) Urine Granular Casts None seen (NONE SEEN) Urine Waxy Casts None seen (NONE SEEN) Urine Red Blood Cell Casts None seen (NONE SEEN) Urine White Blood Cell Casts None seen (NONE SEEN) Urine Mucus None seen (None Seen) Urine Trichomonas None seen (NONE SEEN) Urine Yeast None (NONE SEEN) Urinalysis Comment None Urine Culture Reflexed Not indicated Test 12/17/16 06:17 Troponin T 0.010ug/L (0.0-0.011) Discharge Medications Discharge Medications Aspirin (Aspirin) 81 Mg Tablet 81 MG PO DAILY (Reported) Diclofenac Potassium (Diclofenac Potassium) 50 Mg Tablet 50 MG PO DAILY ( Reported) Glipizide (Glipizide) 10 Mg Tablet 10 MG PO DAILY (Reported) Insulin Detemir (Levemir U100 Insulin Vial) 100 Unit/1 Ml Vial 11 UNIT SUBQ HS ( Reported) Insulin Human Lispro (HumaLOG U100 Insulin Vial) 100 Unit/Ml Unit 0 UNIT SUBQ WMHS Check blood sugars before meals and at bedtime. Use correction factor only before meals. Blood Sugar Lispro Correction:<151, 0units;151-175, 1unit;176-200 , 2units;201-225, 3units;226-250, 4units;251-275, 5units;276-300, 6units;301-325 , 7units;326-350, 8units;351-375, 9units;376-400, 10units;>400,12units. Prescribed by: JOE ADAMS DO Metformin ER (Metformin ER) 1,000 Mg Tablet 1,000 MG PO BID (Reported) Pravastatin (Pravastatin) 10 Mg Tablet 10 MG PO HS (Reported) As needed Hydrocodone-Acetaminophen 7.5-325 mg (Hydrocodone-Acetaminophen 7.5-325 mg) 1 Each Tablet 1 TABLET PO HS PRN PRN For Pain (Reported) Miscellaneous Medications Losartan Potassium (Losartan Potassium) 25 Mg Tablet 25 MG PO (Reported) Followup Plan Disposition: To home with family Follow-up plan See primary care provider if shoulder pain and symptoms are ongoing and may need an x-ray of the shoulder and some physical therapy. Discharge Diet: Heart Healthy, Diabetic Discharge Activity: No restrictions Follow-up Provider: Ally Subramanian MD Follow-up with PCP in: Other (call, if shoulder and arm pain is gone perhaps not at all otherwise with her regarding the pain) Cardiac Rehab: 3 weeks Time spent Greater than 30 minutes Attending Statement Patient has some labile blood pressure issues might benefit from a beta shante , also A1c is pending but I think some more aggressive diabetic control would be warranted for her as well. She may also benefit from a physical therapy referral for her chronic back and shoulder pain. copies to: Ally Subramanian MD; [facility] Arnold Wang MD Dec 17, 2016 16:08
--- NOTE | 2016-12-17 16:16 | NUR ---
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 Reviewed discharge paper work and discharge medications with patient and family present at bed side. Written care notes given provided and understood, signed discharge paper work. Dr. Barrett speaking to family and patient r/t discharge. IV to left arm discontinued with out difficulty. patient getting ready at this time and will DC home with family. Denies chest pain or chest discomfort prior to discharge.
--- NOTE | 2016-12-17 17:12 | NUR ---
Discharge Patient left unit via wheel chair accompained by nursing staff with family members approx [phone].
== END 2016-12-17 18:50 | disposition home or self-care (01) ==
LOC: SED 18:40 → MPC 21:08
PROVIDERS: ADMIT Hospitalist; ATTEND Hospitalist
DX: R07.89 Other chest pain (principal); M25.519 Pain in unspecified shoulder; I10 Essential (primary) hypertension; M54.30 Sciatica, unspecified side; E78.5 Hyperlipidemia, unspecified; F41.8 Other specified anxiety disorders; E11.40 Type 2 diabetes mellitus with diabetic neuropathy, unspecified; E11.43 Type 2 diabetes mellitus with diabetic autonomic (poly)neuropathy; K31.84 Gastroparesis; Z79.4 Long term (current) use of insulin; Z79.84 Long term (current) use of oral hypoglycemic drugs
CPT/HCPCS: 36415; 71010; 78452; 80053; 81000; 83036; 83690; 83735; 84145; 84443; 84484; 85025; 85378; 93005; 93017; 96374; 99285; A9502; G0378; J0280; J1644; J1815; J2270; J2785